=== PATIENT | female | born 1970 | race African-American/Black ===

== ENCOUNTER 2017-02-13 05:58 | Emergency (ER) | payer SELFPAY ==
[~2017-02-13] VITALS: Ht 154.9 cm; Wt 90.7 kg
[2017-02-13 06:26] VITALS: BP 166/106
[2017-02-13] MEDS ORDERED: PROCHLORPERAZINE 10 MG/2 ML VIAL. IV ONE (06:30)
--- NOTE | 2017-02-13 06:45 | ED.ADGEN ---
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 Patient denies fever and sweats, but reports feeling chilled. No nausea vomiting. No cough or shortness of breath. Street of asthma. Patient has not required inhaler use. Patient's been taking [id number] medications with limited relief. She states she has not been able to swallow her blood pressure pills secondary to pain. Blood pressure is notably elevated on today's evaluation. No other acute symptoms or complaints. Patient is a nonsmoker. Patient has received a flu shot this past flu season. Review of Systems Review of Systems Review symptoms as per history of present illness. All other review symptoms are negative. Current Medications Current Medications Current Medications Medications (Trade) Dose Ordered Sig/Ry Start Time Stop Time Status Last Admin Dose Admin Prochlorperazine Edisylate (Compazine) 10 mg 1X ONCE 02/13/17 06:30 02/13/17 06:31 DC Allergies Allergies Allergies Coded Allergies Type Severity Reaction Last Updated Verified metronidazole Allergy Intermediate rash 09/15/15 No Physical Exam Physical Exam Constitutional: Well developed, well nourished, no acute distress, non-toxic appearance. HENT: Normocephalic, atraumatic, bilateral external ears normal, oropharynx moist, posterior oropharynx, mild erythema, no exudates swelling or or tonsillar fullness. Uvula is midline. No trismus, hoarseness or drooling. Eyes: PERRL. Neck: Normal range of motion, no tenderness, supple, anterior cervical lymphadenopathy. Cardiovascular:Heart rate regular rhythm, no murmur. Lungs & Thorax: Bilateral breath sounds clear to auscultation. Abdomen: Bowel sounds normal, soft, no tenderness. Skin: Warm, dry. Back: No tenderness, no CVA tenderness. Extremities: No tenderness, no cyanosis, no clubbing, ROM intact, no edema. Neurologic: Alert and oriented X 3, normal motor function, normal sensory function, no focal deficits noted. Psychologic: Affect normal, judgement normal, mood normal. Current Patient Data Vital Signs Vital Signs Date Time Temp Pulse Resp B/P Pulse Ox O2 Delivery O2 Flow Rate FiO2 02/13/17 06:26 98.5 88 20 98 Room Air 98.5 EKG EKG [] Radiology/Procedures Radiology/Procedures [] Impressions: Acute upper respiratory tract infection Course & Med Decision Making Course & Med Decision Making Pertinent Labs and Imaging studies reviewed. (See chart for details) [] Dragon Disclaimer Dragon Disclaimer This electronic medical record was generated, in whole or in part, using a voice recognition dictation system. EARL PARTIDA DO February 13, 2017 06:45
== END 2017-02-13 06:50 | disposition home or self-care (01) ==
LOC: ER 05:58
DX: J06.9 Acute upper respiratory infection, unspecified (principal); I10 Essential (primary) hypertension; J45.909 Unspecified asthma, uncomplicated; Z90.710 Acquired absence of both cervix and uterus; Z90.49 Acquired absence of other specified parts of digestive tract; Z88.1 Allergy status to other antibiotic agents; Z98.890 Other specified postprocedural states
CPT/HCPCS: 99283

== ENCOUNTER 2017-03-15 19:53 | Emergency (ER) | payer BC ==
[~2017-03-15] VITALS: Ht 154.9 cm; Wt 103.4 kg
[2017-03-15 20:07] VITALS: BP 139/91
[2017-03-15] MEDS ORDERED: guaiFENesin/CODEINE 100mg/10mg 5 ML LIQUID PO ONE (20:30)
[2017-03-15] MEDS ORDERED: DEXAMETHASONE SOD PHOS 20 MG/5 ML VIAL. PO ONE (20:30)
--- NOTE | 2017-03-15 20:57 | PHYS DOC ---
Past Medical History Past Medical History: Asthma, Cancer, Hypertension Additional Past Medical Histor: Cervical Ca Past Surgical History: Cholecystectomy, Hysterectomy Additional Past Surgical Histo: Hernia, Esophagus Repair Alcohol Use: Occasionally Drug Use: None Adult General Chief Complaint Chief Complaint: SORE THROAT HPI HPI Patient is a pleasant 46-year-old female with a 4 week history of sore throat intermittently she was seen here in our emergency department 4 weeks ago and she with supportive care for otitis media and sore throat although no strep testing was done no antibiotics were provided. Patient then was seen at another ED. At given supportive medications and follow-up with her primary care doctor. Symptoms had improved until yesterday when symptoms came back. Patient still describes the pain as burning states when she swallows with no change in voice no cough, no fevers, no chills, she also complains of increased bowel breath in the mornings without burning sensation when she lays down. There is no transfer dysphagia no problems with regurgitation although she does have a history of reflux requiring esophageal banding. At that he has not been evaluated in years and she has no GI follow-up. Patient is concerned maybe she has a strep throat that has been untreated. At this point we will complete strep throat testing given supportive medications as an Robitussin-AC for her discomfort and Decadron by mouth to reduce the swelling and pain in her throat. Review of Systems Review of Systems Constitutional: Denies fever or chills [] Eyes: Denies change in visual acuity, redness, or eye pain [] HENT: He does, no sore throat without cough or nasal congestion. She denies ear pain at this time. She does complain of mild anterior swelling pain to the anterior neck. With no change in voice or dysphasia. Respiratory: Denies cough or shortness of breath [] Cardiovascular: No additional information not addressed in HPI [] GI: Denies abdominal pain, nausea, vomiting, bloody stools or diarrhea [] : Denies dysuria or hematuria [] Musculoskeletal: Denies back pain or joint pain [] Integument: Denies rash or skin lesions [] Neurologic: Denies headache, focal weakness or sensory changes [] Endocrine: Denies polyuria or polydipsia [] Current Medications Current Medications Current Medications Medications (Trade) Dose Ordered Sig/Ry Start Time Stop Time Status Last Admin Dose Admin Dexamethasone Sodium Phosphate (Decadron) 10 mg 1X ONCE 03/15/17 20:30 03/15/17 20:33 DC 03/15/17 20:42 10 MG Guaifenesin/ Codeine Phosphate (Robitussin Ac) 10 ml 1X ONCE 03/15/17 20:30 03/15/17 20:33 DC 03/15/17 20:42 10 ML Allergies Allergies Allergies Coded Allergies Type Severity Reaction Last Updated Verified metronidazole Allergy Intermediate rash 09/15/15 No Physical Exam Physical Exam Constitutional: Well developed, well nourished, no acute distress, non-toxic appearance. [] HENT: Normocephalic, atraumatic, bilateral external ears normal, oropharynx moist, patient is an ex-states but there is tonsillar hypertrophy or erythema. Patient has mild tenderness to palpation along the anterior portion of the trachea no obvious bulging of the trachea consistent with tracheitis, Kal angina or other disease patient infection within the neck. There is no evidence of rectal finger abscess peritonsillar abscess or buccal mucosal cellulitis. Eyes: PERRLA, EOMI, conjunctiva normal, no discharge. [] Neck: Normal range of motion, no tenderness, supple, no stridor. [] Cardiovascular:Heart rate regular rhythm, no murmur [] Lungs & Thorax: Bilateral breath sounds clear to auscultation [] Skin: Warm, dry, no erythema, no rash. [] Neurologic: Alert and oriented X 3, normal motor function, normal sensory function, no focal deficits noted. [] Psychologic: Affect normal, judgement normal, mood normal. [] Current Patient Data Vital Signs Vital Signs Date Time Temp Pulse Resp B/P (MAP) Pulse Ox O2 Delivery O2 Flow Rate FiO2 03/15/17 20:07 98.1 72 18 96 Room Air 98.1 Lab Values Rapid strep negative EKG EKG [] Radiology/Procedures Radiology/Procedures [] Course & Med Decision Making Course & Med Decision Making Pertinent Labs and Imaging studies reviewed. (See chart for details) ration with sore throat for 4 weeks with a history consistent with possible early reflux and esophageal spasm. Ration is negative rapid strep on exam there is no criteria for IV antibiotics or oral antibiotics at this time there is no evidence of peritonsillar abscess, retropharyngeal abscess, Kal angina, bacterial tracheitis, or sauce patient infection of the soft or hard palate. Patient seemed comfortable and stable will be provided some supportive care medications to include Robitussin-DONIS and follow-up with her primary care doctor referral back to GI for an EGD and possible barium swallow study to look for etiologies of her reflux or possible zenkers diverticula impression: Sore throat, pharyngitis Disposition: PCP FU and DONIS wilkerson Disclaimer Dragon Disclaimer This electronic medical record was generated, in whole or in part, using a voice recognition dictation system. Departure Departure Impression: Primary Impression: Sore throat Additional Impression: Pharyngitis Disposition: 01 HOME, SELF-CARE Condition: IMPROVED Referrals: LORNE CONTEH MD (PCP) Patient Instructions: Sore Throat, Viral and Bacterial Pharyngitis Additional Instructions: please return for any new or increasing symptoms, fever >103.1, change in voice or anterior neck swelling. Problem Qualifiers OSMIN SANDOVAL MD March 15, 2017 20:57
[2017-03-15] MEDS ORDERED: DEXT15CA37 PO (21:05)
[2017-03-16 08:59] LABS: NEGATIVE OBC STREP NEG; POSITIVE OBC STREP POS
== END 2017-03-15 21:16 | disposition home or self-care (01) ==
LOC: ER 19:53
DX: J02.9 Acute pharyngitis, unspecified (principal); J45.909 Unspecified asthma, uncomplicated; I10 Essential (primary) hypertension; K21.9 Gastro-esophageal reflux disease without esophagitis; Z90.49 Acquired absence of other specified parts of digestive tract; Z90.710 Acquired absence of both cervix and uterus; Z88.1 Allergy status to other antibiotic agents
CPT/HCPCS: 87070; 87880; 99283; J1100

== ENCOUNTER 2017-11-16 15:05 | Inpatient (IN) | payer OTHER, BC ==
[2017-11-16] MEDS: ASPIRIN CHEWABLE 81 MG TABLET. PO (16:30)
[2017-11-16] MEDS: NITROGLYCERIN OINT 1 GM PACKET. TP (16:57)
[2017-11-16] MEDS: ACETAMINOPHEN 325 MG TABLET. PO (17:13)
[2017-11-16 17:28] LABS: ADD MAN DIFF? NO
[2017-11-16 17:37] LABS: BASO # 0.1 x10^3/uL (0.0-0.2); BASO % 1 % (0-3); EOS # 0.1 x10^3/uL (0.0-0.7); EOS % 1 % (0-3); HEMATOCRIT 39.2 % (36.0-47.0); HEMOGLOBIN 13.1 g/dL (12.0-15.5); LYMPH # 3.1 x10^3/uL (1.0-4.8); LYMPH % 27 % (24-48); MEAN CORPUSCULAR HEMOGLOBIN 29 pg (25-35); MEAN CORPUSCULAR HGB CONC 33 g/dL (31-37); MEAN CORPUSCULAR VOLUME 86 fL (79-100); MONO # 0.8 x10^3/uL (0.0-1.1); MONO % 7 % (0-9); NEUT # 7.3 x10^3uL (1.8-7.7); NEUT % 64 % (31-73); PLATELET COUNT 243 x10^3/uL (140-400); RED BLOOD COUNT 4.57 x10^6/uL (3.50-5.40); RED CELL DISTRIBUTION WIDTH 15.2 % (11.5-14.5); WHITE BLOOD COUNT 11.5 x10^3/uL (4.0-11.0)
[2017-11-16 17:47] LABS: D-DIMER 0.29 ug/mlFEU (0.00-0.50)
[2017-11-16 17:53] LABS: ANION GAP 11 (6-14); BLOOD UREA NITROGEN 8 mg/dL (7-20); BUN/CREATININE RATIO 11 (6-20); CALCIUM 9.8 mg/dL (8.5-10.1); CARBON DIOXIDE 26 mmol/L (21-32); CHLORIDE 105 mmol/L (98-107); CREATININE 0.7 mg/dL (0.6-1.0); GLUCOSE 81 mg/dL (70-99); POTASSIUM 3.4 mmol/L (3.5-5.1); SODIUM 142 mmol/L (136-145)
[2017-11-16 17:57] LABS: ALBUMIN 3.9 g/dL (3.4-5.0); ALBUMIN/GLOBULIN RATIO 0.9 (1.0-1.7); ALK PHOS 99 U/L (46-116); ALT (SGPT) 14 U/L (14-59); AST (SGOT) 13 U/L (15-37); TOTAL BILIRUBIN 0.3 mg/dL (0.2-1.0); TOTAL PROTEIN 8.1 g/dL (6.4-8.2)
[2017-11-16 18:03] LABS: NT-PRO BNP 16 pg/mL (0-124)
[2017-11-16 18:04] LABS: TROPONINI < 0.017 ng/mL (0.000-0.055)
[2017-11-16] MEDS ORDERED: ACETAMINOPHEN 325 MG TABLET. PO (18:15)
[2017-11-16] MEDS ORDERED: NITROGLYCERIN SUBLINGUAL 0.4 MG BOTTLE OF 25. SL (18:15)
[2017-11-16] MEDS ORDERED: MORPHINE SULFATE 2 MG/ML DISP.SYRIN. IV (19:15)
[2017-11-16] MEDS ORDERED: DOCUSATE SODIUM 100 MG CAPSULE. PO (19:15)
[2017-11-16] MEDS ORDERED: hydrALAZINE 20 MG/ML VIAL. IVP (19:15)
[2017-11-16] MEDS ORDERED: ONDANSETRON PF 4 MG/2 ML VIAL. IV (19:15)
[2017-11-16] MEDS: traMADol 50 MG TABLET PO (19:57)
[2017-11-17] MEDS: traMADol 50 MG TABLET PO ×2 (03:10→11:08)
[2017-11-17 05:23] LABS: ADD MAN DIFF? NO
[2017-11-17 05:44] LABS: BASO % 0 % (0-3); EOS # 0.2 x10^3/uL (0.0-0.7); EOS % 2 % (0-3); HEMATOCRIT 37.6 % (36.0-47.0); HEMOGLOBIN 12.3 g/dL (12.0-15.5); LYMPH # 2.6 x10^3/uL (1.0-4.8); LYMPH % 30 % (24-48); MEAN CORPUSCULAR HEMOGLOBIN 28 pg (25-35); MEAN CORPUSCULAR HGB CONC 33 g/dL (31-37); MEAN CORPUSCULAR VOLUME 87 fL (79-100); MONO # 0.6 x10^3/uL (0.0-1.1); MONO % 7 % (0-9); NEUT # 5.3 x10^3uL (1.8-7.7); NEUT % 61 % (31-73); PLATELET COUNT 223 x10^3/uL (140-400); RED BLOOD COUNT 4.35 x10^6/uL (3.50-5.40); RED CELL DISTRIBUTION WIDTH 15.3 % (11.5-14.5); WHITE BLOOD COUNT 8.7 x10^3/uL (4.0-11.0)
[2017-11-17 06:17] LABS: ANION GAP 10 (6-14); BLOOD UREA NITROGEN 12 mg/dL (7-20); CALCIUM 9.3 mg/dL (8.5-10.1); CARBON DIOXIDE 26 mmol/L (21-32); CHLORIDE 106 mmol/L (98-107); CHOLESTEROL 136 mg/dL (0-200); CREATININE 0.7 mg/dL (0.6-1.0); GLUCOSE 93 mg/dL (70-99); HDLC 46 mg/dL (40-60); LDLC 78 mg/dL (0-100); NON-HDL CHOLESTEROL 90 mg/dL (0-129); POTASSIUM 3.7 mmol/L (3.5-5.1); SODIUM 142 mmol/L (136-145); TRIGLYCERIDES 61 mg/dL (0-150); VLDLC 12 mg/dL (0-40)
[2017-11-17 06:21] LABS: TROPONINI < 0.017 ng/mL (0.000-0.055)
[2017-11-17 06:35] LABS: THYROID STIM HORMONE (TSH) 1.076 uIU/mL (0.358-3.74)
[2017-11-17 08:42] LABS: TROPONINI < 0.017 ng/mL (0.000-0.055)
[2017-11-17] MEDS: PANTOPRAZOLE 40 MG TABLET.DR. PO (08:59)
[2017-11-17] MEDS: ACETAMINOPHEN 325 MG TABLET. PO (09:00)
[2017-11-17] MEDS: LISINOPRIL 20 MG TABLET PO (09:00)
[2017-11-17] MEDS: REGADENOSON 0.4 MG/5 ML DISP.SYRIN. IV (11:54)
== END 2017-11-17 18:18 | disposition home or self-care (01) | DRG 292 ==
LOC: ER 15:05 → 2 SOUTH 16:23
DX: I11.0 Hypertensive heart disease with heart failure (principal); Z68.41 Body mass index [BMI] 40.0-44.9, adult; E66.01 Morbid (severe) obesity due to excess calories; I20.0 Unstable angina; I50.9 Heart failure, unspecified; R07.89 Other chest pain; F41.9 Anxiety disorder, unspecified; J45.20 Mild intermittent asthma, uncomplicated; K21.9 Gastro-esophageal reflux disease without esophagitis; Z82.49 Family history of ischemic heart disease and other diseases of the circulatory system; Z85.41 Personal history of malignant neoplasm of cervix uteri; Z90.710 Acquired absence of both cervix and uterus; Z90.49 Acquired absence of other specified parts of digestive tract; Z85.9 Personal history of malignant neoplasm, unspecified; Z88.8 Allergy status to other drugs, medicaments and biological substances
CPT/HCPCS: 36415; 71045; 78452; 80048; 80053; 80061; 83880; 84443; 84484; 85025; 85379; 93005; 93017; 93306; 96374; 96375; 99285-25; A9500; J2785

== ENCOUNTER 2018-02-03 19:19 | Emergency (ER) | payer OTHER | END 2018-02-03 19:49 | disposition home or self-care (01) | LOC: ER 19:19 | DX: L25.9 Unspecified contact dermatitis, unspecified cause (principal); J45.909 Unspecified asthma, uncomplicated; I10 Essential (primary) hypertension; Z88.8 Allergy status to other drugs, medicaments and biological substances | CPT/HCPCS: 99283 ==

== ENCOUNTER 2018-10-29 08:53 | Inpatient (IN) | payer BC, OTHER ==
[~2018-10-29] VITALS: Ht 154.9 cm; Wt 111.2 kg
[~2018-10-29 08:53] MED LIST: DEXT15CA37 PO; LISI-130 PO; TRIA15OI TP
[2018-10-29] MEDS: NITROGLYCERIN SUBLINGUAL 0.4 MG BOTTLE OF 25. SL PRN ×3 (09:27→09:49)
[2018-10-29] MEDS ORDERED: ASPIRIN ENTERIC COATED 81 MG TABLET.DR. PO ONE (09:30)
[2018-10-29] MEDS ORDERED: ASPIRIN CHEWABLE 81 MG TABLET. PO ONE (09:30)
[2018-10-29 09:34] LABS: BASO # 0.1 x10^3/uL (0.0-0.2); BASO % 1 % (0-3); EOS # 0.1 x10^3/uL (0.0-0.7); EOS % 1 % (0-3); HEMOGLOBIN 12.8 g/dL (12.0-15.5); LYMPH # 2.5 x10^3/uL (1.0-4.8); LYMPH % 26 % (24-48); MEAN CORPUSCULAR HEMOGLOBIN 28 pg (25-35); MEAN CORPUSCULAR HGB CONC 34 g/dL (31-37); MEAN CORPUSCULAR VOLUME 84 fL (79-100); MONO # 0.5 x10^3/uL (0.0-1.1); MONO % 6 % (0-9); NEUT # 6.3 x10^3uL (1.8-7.7); NEUT % 66 % (31-73); PLATELET COUNT 229 x10^3/uL (140-400); RED CELL DISTRIBUTION WIDTH 14.9 % (11.5-14.5); WHITE BLOOD COUNT 9.5 x10^3/uL (4.0-11.0)
[2018-10-29 09:42] LABS: CALCIUM 9.6 mg/dL (8.5-10.1); CREATININE 0.7 mg/dL (0.6-1.0); GFR 108.5; POTASSIUM 3.6 mmol/L (3.5-5.1)
--- NOTE | 2018-10-29 09:44 | PHYS DOC ---
Past Medical History Past Medical History: Anxiety, Asthma, Cancer, Hypertension Additional Past Medical Histor: Cervical Ca Past Surgical History: Cholecystectomy, Hysterectomy Additional Past Surgical Histo: Hernia, Esophagus Repair Alcohol Use: Occasionally Drug Use: None Adult General Chief Complaint Chief Complaint: CHEST PAIN HPI HPI Patient is a 48 year old AA female with h/o asthma and hypertension since with substernal chest heaviness she is intermittent for the past 2 days. Pain is nonradiating. His episode with nausea vomiting chills or sweats. Denies dyspnea on exertion. Patient does report bilateral peripheral edema and leg pain. No history of DVT or PE. No history of CAD, diabetes. Patient is nonsmoker. No medications or therapy is attempted prior to ED arrival.[] Review of Systems Review of Systems Review symptoms as per history of present illness. All other review symptoms are negative. All other systems were reviewed and found to be within normal limits, except as documented in this note. Current Medications Current Medications Current Medications Medications (Trade) Dose Ordered Sig/Ry Start Time Stop Time Status Last Admin Dose Admin Aspirin (Children'S Aspirin) 324 mg 1X ONCE 10/29/18 09:30 10/29/18 09:31 DC 10/29/18 09:26 324 MG Aspirin (Ecotrin) 324 mg 1X ONCE 10/29/18 09:30 10/29/18 09:31 Cancel Morphine Sulfate (Morphine Sulfate) 4 mg 1X ONCE 10/29/18 10:15 10/29/18 10:16 DC 10/29/18 10:04 4 MG Nitroglycerin (Nitrostat) 0.4 mg PRN Q5MIN PRN 10/29/18 09:15 10/29/18 09:49 0.4 MG Ondansetron HCl (Zofran) 4 mg 1X ONCE 10/29/18 10:15 10/29/18 10:16 DC 10/29/18 10:03 4 MG Allergies Allergies Allergies Coded Allergies Type Severity Reaction Last Updated Verified metronidazole Allergy Intermediate rash 09/15/15 No Physical Exam Physical Exam Constitutional: Well developed, well nourished, no acute distress, non-toxic appearance. [] HENT: Normocephalic, atraumatic, bilateral external ears normal, nose normal. [ ] Eyes: PERRLA, EOMI, conjunctiva normal. [] Neck: Normal range of motion, no tenderness. [] Cardiovascular:Heart rate regular rhythm, no murmur, negative homans sign [] Lungs & Thorax: Bilateral breath sounds clear to auscultation [] Abdomen: Bowel sounds normal, soft, no tenderness. [] Skin: Warm, dry, no erythema. [] Back: No tenderness, no CVA tenderness. [] Extremities: No tenderness, bipedal edema. [] Neurologic: Alert and oriented X 3, normal motor function, normal sensory function, no focal deficits noted. [] Psychologic: Affect normal, judgement normal, mood normal. [] Current Patient Data Vital Signs Vital Signs Date Time Temp Pulse Resp B/P (MAP) Pulse Ox O2 Delivery O2 Flow Rate FiO2 10/29/18 10:04 20 95 Room Air 10/29/18 09:49 78 115/57 10/29/18 08:53 98.0 98.0 Lab Values Laboratory Tests Test 10/29/18 09:20 White Blood Count 9.5 x10^3/uL (4.0-11.0) Red Blood Count 4.50 x10^6/uL (3.50-5.40) Hemoglobin 12.8 g/dL (12.0-15.5) Hematocrit 38.0 % (36.0-47.0) Mean Corpuscular Volume 84 fL (79-100) Mean Corpuscular Hemoglobin 28 pg (25-35) Mean Corpuscular Hemoglobin Concent 34 g/dL (31-37) Red Cell Distribution Width 14.9 % (11.5-14.5) H Platelet Count 229 x10^3/uL (140-400) Neutrophils (%) (Auto) 66 % (31-73) Lymphocytes (%) (Auto) 26 % (24-48) Monocytes (%) (Auto) 6 % (0-9) Eosinophils (%) (Auto) 1 % (0-3) Basophils (%) (Auto) 1 % (0-3) Neutrophils # (Auto) 6.3 x10^3uL (1.8-7.7) Lymphocytes # (Auto) 2.5 x10^3/uL (1.0-4.8) Monocytes # (Auto) 0.5 x10^3/uL (0.0-1.1) Eosinophils # (Auto) 0.1 x10^3/uL (0.0-0.7) Basophils # (Auto) 0.1 x10^3/uL (0.0-0.2) D-Dimer (Carito) 0.31 ug/mlFEU (0.00-0.50) Sodium Level 141 mmol/L (136-145) Potassium Level 3.6 mmol/L (3.5-5.1) Chloride Level 103 mmol/L (98-107) Carbon Dioxide Level 32 mmol/L (21-32) Anion Gap 6 (6-14) Blood Urea Nitrogen 8 mg/dL (7-20) Creatinine 0.7 mg/dL (0.6-1.0) Estimated GFR (Cockcroft-Gault) 108.5 BUN/Creatinine Ratio 11 (6-20) Glucose Level 101 mg/dL (70-99) H Calcium Level 9.6 mg/dL (8.5-10.1) Total Bilirubin 0.3 mg/dL (0.2-1.0) Aspartate Amino Transferase (AST) 15 U/L (15-37) Alanine Aminotransferase (ALT) 17 U/L (14-59) Alkaline Phosphatase 98 U/L (46-116) Troponin I Quantitative < 0.017 ng/mL (0.000-0.055) OC-Yag-R-Type Natriuretic Peptide 9 pg/mL (0-124) Total Protein 8.0 g/dL (6.4-8.2) Albumin 3.7 g/dL (3.4-5.0) Albumin/Globulin Ratio 0.9 (1.0-1.7) L Laboratory Tests 10/29/18 09:20 Laboratory Tests 10/29/18 09:20 EKG EKG [EKG: reviewed] Radiology/Procedures Radiology/Procedures [Chest x-ray: No acute cardiopulmonary disease on preliminary ED review] Course & Med Decision Making Course & Med Decision Making Pertinent Labs and Imaging studies reviewed. (See chart for details) [] Dragon Disclaimer Dragon Disclaimer This electronic medical record was generated, in whole or in part, using a voice recognition dictation system. Departure Departure Referrals: NO PCP (PCP) EARL PARTIDA DO Oct 29, 2018 09:44
[2018-10-29 09:48] LABS: ALBUMIN 3.7 g/dL (3.4-5.0); ALBUMIN/GLOBULIN RATIO 0.9 (1.0-1.7); TOTAL BILIRUBIN 0.3 mg/dL (0.2-1.0)
[2018-10-29] MEDS ORDERED: MORPHINE SULFATE 4 MG/ML VIAL. IV ONE (10:15)
[2018-10-29] MEDS ORDERED: ONDANSETRON PF 4 MG/2 ML VIAL. IV ONE (10:15)
--- NOTE | 2018-10-29 10:31 | RAD ---
EXAM: AP View of the chest DATE: 10/29/2018 9:21 AM INDICATION: Shortness of air COMPARISON: 11/16/2017 FINDINGS: The heart is not enlarged. Mediastinal and hilar contours are stable. No focal parenchymal airspace opacity. Nodular density left lower lobe, calcified granuloma No pleural effusion or pneumothorax. IMPRESSION: 1. No radiographic evidence for acute cardiopulmonary process. Electronically signed by: Duglas Carreon MD (10/29/2018 10:27 AM) [id number]
[2018-10-29] MEDS ORDERED: ONDANSETRON PF 4 MG/2 ML VIAL. IV PRN (11:00)
--- NOTE | 2018-10-29 11:11 | EKG ---
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
--- NOTE | 2018-10-29 12:25 | HP ---
ADMIT DATE: 10/29/2018 CHIEF COMPLAINT: Chest discomfort. 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 She developed chest discomfort, rates it a 7 out of 10, describes it as pressure like. It has been occurring off and on for a couple of days. She tried taking some home meds, but that was not working. Describes it as agonizing, worse with moving. I have discussed the case with the ER physician. We are going to admit the patient and rule out coronary syndrome. PAST MEDICAL HISTORY: Anxiety, asthma, cervical cancer, hypertension, cholecystectomy, hysterectomy, hernia repair and esophageal repair. ALLERGIES: METRONIDAZOLE. FAMILY HISTORY: Coronary artery disease in her brother, her sister and her mom. SOCIAL HISTORY: She does not drink, smoke or take drugs. MEDICATIONS: Reviewed. She is on lisinopril and triamcinolone. REVIEW OF SYSTEMS: GENERAL: No history of weight change, weakness or fevers. SKIN: No bruising, hair changes or rashes. EYES: No blurred, double or loss of vision. NOSE AND THROAT: No history of nosebleeds, hoarseness or sore throat. HEART: No history of palpitations or shortness of breath on exertion. She complains of chest pain. LUNGS: Denies cough, hemoptysis, wheezing or shortness of breath. GASTROINTESTINAL: Denies changes in appetite, nausea, vomiting, diarrhea or constipation. GENITOURINARY: No history of frequency, urgency, hesitancy or nocturia. NEUROLOGIC: Denies history of numbness, tingling, tremor or weakness. PSYCHIATRIC: No history of panic, anxiety or depression. ENDOCRINE: No history of heat or cold intolerance, polyuria or polydipsia. EXTREMITIES: Denies muscle weakness, joint pain, pain on walking or stiffness. PHYSICAL EXAMINATION: VITAL SIGNS: Temperature afebrile, pulse 98, respirations 18 and blood pressure 146/90. GENERAL: She is alert, cooperative. HEART: Normal S1, S2. LUNGS: Clear to auscultation. ABDOMEN: Soft. Positive bowel sounds. EXTREMITIES: Trace edema. SKIN: No rash. ENDOCRINE: No thyromegaly. LYMPHATICS: No cervical nodes. HEMATOPOIETIC: No bruising. PSYCHIATRIC: She is stable. LABORATORY DATA: Hematology is normal. Electrolytes are normal. Troponin is 0. ASSESSMENT AND PLAN: Chest pain, rule out coronary artery disease. The patient has been admitted. We will check serial enzymes, serial EKGs, consult Cardiology, cardiac monitoring. PROGNOSIS: Guarded. YESSY GALINDO DO DR: Arnoldo JOB#: [id number] / [id number]
--- NOTE | 2018-10-29 13:03 | PDOC2 ---
GUILLE CONTRERAS NURSERY WORKER 10/29/18 1303: CARDIAC CONSULT DATE OF CONSULT Date of Consult DATE: 10/29/18 TIME: 13:01 REASON FOR CONSULT Reason for Consult: Chest pain REFERRING PHYSICIAN Referring Physician: Dr. Tijerina SOURCE Source: Chart review, Patient HISTORY OF PRESENT ILLNESS HISTORY OF PRESENT ILLNESS This is a 48 yo female who presented with complaints of chest pain. Patient reports pain began while she was at work yesterday. Has been constant. Describes as pressure. Located in her central chest/epigastric region. Denies any associated dizziness, SOA, diaphoresis, palpitation, or nausea/vomiting. Pain seems to be improved with sitting up. Also reports tightness in her left FA. Stats that she is able to "work the pain out" by rubbing it. No recent ANDREWS, PND, or fevers/illness. Does complaints of throbbing in her bilateral LE x3 days. Feeling like her left knee is slightly swollen and has had some mild pain behind the right knee for the last couple of days. PAST MEDICAL HISTORY Cardiovascular: HTN Pulmonary: Asthma, Other (TSERING) CENTRAL NERVOUS SYSTEM: Other (no pertinent history ) GI: GERD, Other (esophageal stricture s/p dilation) Heme/Onc: Cancer (cervical ) Hepatobiliary: No pertinent hx Psych: Anxiety Musculoskeletal: Other (no pertinet hx) Rheumatologic: No pertinent hx Infectious disease: No pertinent hx ENT: No pertinent hx Renal/: No pertinent hx Endocrine: No pertinent hx Dermatology: No pertinent hx PAST SURGICAL HISTORY Past Surgical History: Cholecystectomy, Hernia Repair, Hysterectomy FAMILY HISTORY Family History: Coronary Artery Disease, Heart Disease SOCIAL HISTORY Smoke: No ALCOHOL: none Drugs: None Lives: Alone CURRENT MEDICATIONS CURRENT MEDICATIONS Current Medications Medications (Trade) Dose Ordered Sig/Ry Route PRN Reason Start Time Stop Time Status Last Admin Dose Admin Nitroglycerin (Nitrostat) 0.4 mg PRN Q5MIN PRN SL CHEST PAIN 10/29/18 09:15 10/29/18 09:49 Aspirin (Children'S Aspirin) 324 mg 1X ONCE PO 10/29/18 09:30 10/29/18 09:31 DC 10/29/18 09:26 Morphine Sulfate (Morphine Sulfate) 4 mg 1X ONCE IV 10/29/18 10:15 10/29/18 10:16 DC 10/29/18 10:04 Ondansetron HCl (Zofran) 4 mg 1X ONCE IV 10/29/18 10:15 10/29/18 10:16 DC 10/29/18 10:03 ALLERGIES ALLERGIES: Coded Allergies: metronidazole (Verified Allergy, Intermediate, rash, 10/30/18) ROS Review of System 14 point ROS conducted with pertinent positives noted above in HPI. PHYSICAL EXAM General: Alert, Oriented X3, Cooperative, No acute distress HEENT: Atraumatic, Mucous membr. moist/pink Lungs: Clear to auscultation, Normal air movement Heart: Regular rate, No murmurs Abdomen: Soft, No tenderness Extremities: No edema, Normal pulses Skin: No breakdown, No significant lesion Neuro: Normal speech, Sensation intact Psych/Mental Status: Mental status NL, Mood NL MUSCULOSKELETAL: No deformity VITALS VITALS Vital Signs Date Time Temp Pulse Resp B/P (MAP) Pulse Ox O2 Delivery O2 Flow Rate FiO2 10/29/18 11:31 76 14 109/62 (78) 95 Room Air 10/29/18 08:53 98.0 98.0 LABS Lab: Laboratory Tests Test 10/29/18 09:20 White Blood Count 9.5 x10^3/uL (4.0-11.0) Red Blood Count 4.50 x10^6/uL (3.50-5.40) Hemoglobin 12.8 g/dL (12.0-15.5) Hematocrit 38.0 % (36.0-47.0) Mean Corpuscular Volume 84 fL (79-100) Mean Corpuscular Hemoglobin 28 pg (25-35) Mean Corpuscular Hemoglobin Concent 34 g/dL (31-37) Red Cell Distribution Width 14.9 % (11.5-14.5) Platelet Count 229 x10^3/uL (140-400) Neutrophils (%) (Auto) 66 % (31-73) Lymphocytes (%) (Auto) 26 % (24-48) Monocytes (%) (Auto) 6 % (0-9) Eosinophils (%) (Auto) 1 % (0-3) Basophils (%) (Auto) 1 % (0-3) Neutrophils # (Auto) 6.3 x10^3uL (1.8-7.7) Lymphocytes # (Auto) 2.5 x10^3/uL (1.0-4.8) Monocytes # (Auto) 0.5 x10^3/uL (0.0-1.1) Eosinophils # (Auto) 0.1 x10^3/uL (0.0-0.7) Basophils # (Auto) 0.1 x10^3/uL (0.0-0.2) D-Dimer (Carito) 0.31 ug/mlFEU (0.00-0.50) Sodium Level 141 mmol/L (136-145) Potassium Level 3.6 mmol/L (3.5-5.1) Chloride Level 103 mmol/L (98-107) Carbon Dioxide Level 32 mmol/L (21-32) Anion Gap 6 (6-14) Blood Urea Nitrogen 8 mg/dL (7-20) Creatinine 0.7 mg/dL (0.6-1.0) Estimated GFR (Cockcroft-Gault) 108.5 BUN/Creatinine Ratio 11 (6-20) Glucose Level 101 mg/dL (70-99) Calcium Level 9.6 mg/dL (8.5-10.1) Total Bilirubin 0.3 mg/dL (0.2-1.0) Aspartate Amino Transf (AST/SGOT) 15 U/L (15-37) Alanine Aminotransferase (ALT/SGPT) 17 U/L (14-59) Alkaline Phosphatase 98 U/L (46-116) Troponin I Quantitative < 0.017 ng/mL (0.000-0.055) TS-Qwe-H-Type Natriuretic Peptide 9 pg/mL (0-124) Total Protein 8.0 g/dL (6.4-8.2) Albumin 3.7 g/dL (3.4-5.0) Albumin/Globulin Ratio 0.9 (1.0-1.7) ECHOCARDIOGRAM ECHOCARDIOGRAM <Conclusion> The left ventricular systolic function is normal. The Ejection Fraction is 60-65%. There is normal LV segmental wall motion. Doppler and Color Flow revealed trace tricuspid regurgitation. There is no evidence of significant pericardial effusion. DATE: 11/17/17 1629 STRESS TEST STRESS TEST Conclusion 1. No EKG evidence of stressed induced ischemia. 2. Nuclear imaging shows normal stress images. 3. Normal left ventricular systolic function with an ejection fraction of greater than 70%. 4. Low risk Lexiscan nuclear stress test. DATE: 11/17/17 1352 ASSESSMENT/PLAN ASSESSMENT/PLAN 1. Chest pain. initial troponin negative. MPI earlier this year without ischemia. Echo with preserved LV function as noted above. Suspect pain is GI in origin 2. Hypertension; controlled 3. Morbid obesity: BMI 44 4. GERD; no on PPI 5. Hx of hiatal hernia and esophageal stricture with repair and dilatation 2 years ago Recommendations Trend troponin Check echo to assess LV systolic function Resume antiHTN therapy Add PPI LILIANA GALLARDO MD 10/30/18 0754: CARDIAC CONSULT ASSESSMENT/PLAN ASSESSMENT/PLAN Patient seen and examined 10/29/18. Agree with COLOR CORRECTOR's assessment and plan. Chest pain with atypical features and most probably GI etiology. Myocardial infarction has been ruled out. 2-D echo showed normal LV systolic function without any wall motion abnormalities. Recent stress test did not show any significant ischemia. No further cardiac workup is indicated at this time. Thank you for your consultation. GUILLE CONTRERAS APRN Oct 29, 2018 13:03 LILIANA GALLARDO MD Oct 30, 2018 07:54
[2018-10-29 13:25] VITALS: BP 144/87
--- NOTE | 2018-10-29 15:52 | RAD ---
Bilateral lower extremity venous ultrasound, 10/29/2018: History: Bilateral leg pain Duplex evaluation of the deep veins in the lower extremities was performed including grayscale, color-flow and spectral Doppler analysis. The femoral and popliteal veins demonstrate normal compressibility and normal responses to distal augmentation maneuvers. Color imaging of those vessels shows no evidence of intraluminal clot. The visualized deep veins in both calves are patent. IMPRESSION: There is no sonographic evidence of deep vein thrombosis in either lower extremity. Electronically signed by: Surendra Moseley MD (10/29/2018 3:47 PM) [facility]
[2018-10-29 15:53] VITALS: BP 141/89
--- NOTE | 2018-10-29 16:54 | CARD ---
MR#: [id number] Date of Study: 10/29/2018 Ordering Physician: GUILLE CONTRERAS, Referring Physician: YESSY GALINDO Tech: Asia Barron BABATUNDE APPROVED REPORT EXAM: Two-dimensional and M-mode echocardiogram with Doppler and color Doppler. Other Information Quality : FairHR: 65bpm Rhythm : NSRTechnically limited study due to body habitus. INDICATION Chest Pain 2D DIMENSIONS RVDd2.6 (2.9-3.5cm)Left Atrium(2D)2.3 (1.6-4.0cm) IVSd1.2 (0.7-1.1cm)Aortic Root(2D)3.3 (2.0-3.7cm) LVDd4.0 (3.9-5.9cm)LVOT Diameter2.4 (1.8-2.4cm) PWd1.1 (0.7-1.1cm)LVDs2.9 (2.5-4.0cm) FS (%) 28.2 %SV38.4 ml LVEF(%)55.1 (>50%) M-Mode DIMENSIONS Left Atrium(MM)2.73 (2.5-4.0cm)Aortic Root3.12 (2.2-3.7cm) Aortic Valve AoV Peak Benny.130.4cm/sAoV VTI28.0cm AO Peak GR.6.8mmHgLVOT Peak Benny.94.6cm/s AO Mean GR.3mmHgAVA (VMAX)3.36cm2 RIKY (VTI)3.30cm2 Mitral Valve MV E Yroxnfdv33.6cm/sMV DECEL [id number] MV A Tvtkunnu57.1cm/sE/A Ratio1.1 MV A [id number] Pulmonary Valve PV Peak Lxgmrnno50.6cm/s Tricuspid Valve TR P. Ypkemsyi259nn/sRAP NHASHLVO9ktZi TR Peak Gr.15joWvAQLL15jxMf LEFT VENTRICLE The left ventricle is normal size. There is borderline to mild concentric left ventricular hypertroph y. The left ventricular systolic function is normal. The Ejection Fraction is 55-60%. There is normal LV segmental wall motion. RIGHT VENTRICLE The right ventricle is normal size. There is normal right ventricular wall thickness. The right ventr icular systolic function is normal. AORTIC VALVE The aortic valve is probably trileaflet. Doppler and Color Flow revealed no significant aortic regurg itation. There is no significant aortic valvular stenosis. MITRAL VALVE The mitral valve is normal in structure and function. There is no evidence of mitral valve prolapse. There is no mitral valve stenosis. Doppler and Color Flow revealed no mitral valve regurgitation note d. TRICUSPID VALVE The tricuspid valve is normal in structure and function. Doppler and Color Flow revealed trace tricus pid regurgitation. There is mild pulmonary hypertension. The PA pressure was estimated at 45 mmHg. Th ere is no tricuspid valve prolapse or vegetation. There is no tricuspid valve stenosis. PULMONIC VALVE Pulmonic valve not well visualized. Doppler and Color Flow revealed trace to mild pulmonic valvular r egurgitation. GREAT VESSELS The aortic root is normal in size. The ascending aorta is normal in size. PERICARDIAL EFFUSION There is no evidence of significant pericardial effusion. Critical Notification Critical Value: No <Conclusion> The left ventricular systolic function is normal. The Ejection Fraction is 55-60%. There is normal LV segmental wall motion. Doppler and Color Flow revealed trace tricuspid regurgitation. The PA pressure was estimated at 45 mmHg. There is no evidence of significant pericardial effusion. Signed by : Baron Dudley, Electronically Approved : 10/29/2018 16:52:13
[2018-10-29] MEDS ORDERED: ACETAMINOPHEN 325 MG TABLET. PO PRN (17:15)
[2018-10-29] MEDS: PANTOPRAZOLE 40 MG TABLET.DR. PO SCH (18:09)
[2018-10-29 19:28] VITALS: BP 140/73
--- NOTE | 2018-10-29 20:56 | NUR ---
Patient complaints bilateral leg pain. Rates pain 6 out of 10. Patient stated "not new been hurting all day." "Constant is not relieved by anything."Paged application support technician [phone]. Dr Valerio application support technician.
[2018-10-29] MEDS: oxyCODONE IR 5 MG TABLET PO PRN (21:45)
--- NOTE | 2018-10-29 21:45 | NUR ---
During downtime 5 mg PO Oxycontin was given. Medication and patient was not scanned due to downtime.
[2018-10-30 03:02] VITALS: BP 116/65
[2018-10-30] MEDS: PANTOPRAZOLE 40 MG TABLET.DR. PO SCH (05:59)
[2018-10-30 07:00] VITALS: BP 106/62
[2018-10-30] MEDS: ASPIRIN ENTERIC COATED 81 MG TABLET.DR. PO SCH (08:45)
[2018-10-30] MEDS: LISINOPRIL 20 MG TABLET PO SCH (08:45)
[2018-10-30] MEDS: oxyCODONE IR 5 MG TABLET PO PRN ×2 (08:46→20:47)
[2018-10-30 11:00] VITALS: BP 146/89
[2018-10-30] MEDS ORDERED: INFLUENZA VAX SCREEN BY RX. MC PRN (12:00)
--- NOTE | 2018-10-30 14:34 | NUR ---
SS following for discharge planning. SS reviewed pt chart. Pt is from home and is currently on room air. No discharge needs noted at this time. SS will continue to follow for pending discharge needs
[2018-10-30] MEDS: GABAPENTIN 100 MG CAPSULE. PO SCH ×2 (14:45→20:45)
[2018-10-30 15:00] VITALS: BP 152/82
[2018-10-30] MEDS ORDERED: GABA-585 PO (15:56)
--- NOTE | 2018-10-30 17:02 | RAD ---
Bilateral lower extremity arterial ultrasound, 10/30/2018: HISTORY: Bilateral leg pain Duplex evaluation of the major arteries in both lower extremities was performed including grayscale, color-flow and spectral Doppler analysis. The right common femoral artery, superficial femoral and popliteal arteries demonstrate triphasic Doppler waveforms. No significant focal velocity acceleration is seen through those regions to suggest significant stenosis. No prominent plaque formation is seen. Patent posterior tibial and anterior tibial arteries are present in the right lower leg demonstrating monophasic Doppler waveforms. The right peroneal artery was not visualized. The right dorsal palace pedis artery also demonstrates a monophasic Doppler waveform. On the left, the common femoral, superficial femoral and popliteal arteries demonstrate probably triphasic Doppler waveforms. No significant focal velocity acceleration is seen to suggest high-grade stenosis. No prominent plaque formation is evident. A patent posterior tibial artery is present in the left lower leg demonstrating a monophasic Doppler waveform. The left anterior tibial Doppler waveform is triphasic. The left peroneal artery could not be visualized. The left dorsalis pedis Doppler waveform is monophasic. IMPRESSION: 1. Mild degradation of the distal Doppler waveforms in both lower legs. 2. No high-grade femoral-popliteal stenosis is identified. Electronically signed by: Surendra Moseley MD (10/30/2018 4:57 PM) [facility] [place]
--- NOTE | 2018-10-30 17:39 | PDOC ---
PROGRESS NOTES Chief Complaint Chief Complaint chest pain could be gerd bl leg pain, neuropathy vs PAD h/o asthma , anxiety, cervical Ca HTN accelerated morbid obesity plan: card consulted, echo ok, signed off cont home meds dvt ruled out US showed some leg PAD, will get cta and vascular consult add gabapentin check vitb12 dvt ppx History of Present Illness History of Present Illness no chest pain now, came for chest pain for 2 ds c/o bl leg pain, rt great toe pain like needle Vitals Vitals Vital Signs Date Time Temp Pulse Resp B/P (MAP) Pulse Ox O2 Delivery O2 Flow Rate FiO2 10/30/18 15:00 97.8 80 18 152/82 (105) 96 Room Air 97.8 Physical Exam General: Alert, Oriented X3, Cooperative, No acute distress Heart: Regular rate, Normal S1, Normal S2, No murmurs Lungs: Clear Abdomen: Soft, No tenderness Extremities: No edema, Normal pulses Skin: No breakdown, No significant lesion Comment Review of Relevant I have reviewed the following items viviana (where applicable) has been applied. Labs Laboratory Tests Test 10/29/18 09:20 10/29/18 14:23 White Blood Count 9.5 x10^3/uL (4.0-11.0) Red Blood Count 4.50 x10^6/uL (3.50-5.40) Hemoglobin 12.8 g/dL (12.0-15.5) Hematocrit 38.0 % (36.0-47.0) Mean Corpuscular Volume 84 fL (79-100) Mean Corpuscular Hemoglobin 28 pg (25-35) Mean Corpuscular Hemoglobin Concent 34 g/dL (31-37) Red Cell Distribution Width 14.9 % (11.5-14.5) Platelet Count 229 x10^3/uL (140-400) Neutrophils (%) (Auto) 66 % (31-73) Lymphocytes (%) (Auto) 26 % (24-48) Monocytes (%) (Auto) 6 % (0-9) Eosinophils (%) (Auto) 1 % (0-3) Basophils (%) (Auto) 1 % (0-3) Neutrophils # (Auto) 6.3 x10^3uL (1.8-7.7) Lymphocytes # (Auto) 2.5 x10^3/uL (1.0-4.8) Monocytes # (Auto) 0.5 x10^3/uL (0.0-1.1) Eosinophils # (Auto) 0.1 x10^3/uL (0.0-0.7) Basophils # (Auto) 0.1 x10^3/uL (0.0-0.2) D-Dimer (Carito) 0.31 ug/mlFEU (0.00-0.50) Sodium Level 141 mmol/L (136-145) Potassium Level 3.6 mmol/L (3.5-5.1) Chloride Level 103 mmol/L (98-107) Carbon Dioxide Level 32 mmol/L (21-32) Anion Gap 6 (6-14) Blood Urea Nitrogen 8 mg/dL (7-20) Creatinine 0.7 mg/dL (0.6-1.0) Estimated GFR (Cockcroft-Gault) 108.5 BUN/Creatinine Ratio 11 (6-20) Glucose Level 101 mg/dL (70-99) Calcium Level 9.6 mg/dL (8.5-10.1) Total Bilirubin 0.3 mg/dL (0.2-1.0) Aspartate Amino Transf (AST/SGOT) 15 U/L (15-37) Alanine Aminotransferase (ALT/SGPT) 17 U/L (14-59) Alkaline Phosphatase 98 U/L (46-116) Troponin I Quantitative < 0.017 ng/mL (0.000-0.055) < 0.017 ng/mL (0.000-0.055) VL-Cqc-F-Type Natriuretic Peptide 9 pg/mL (0-124) Total Protein 8.0 g/dL (6.4-8.2) Albumin 3.7 g/dL (3.4-5.0) Albumin/Globulin Ratio 0.9 (1.0-1.7) Medications Current Medications Aspirin (Ecotrin) 324 mg 1X ONCE PO ; Start 10/29/18 at 09:30; Stop 10/29/18 at 09:31; Status Cancel Nitroglycerin (Nitrostat) 0.4 mg PRN Q5MIN PRN SL CHEST PAIN Last administered on 10/29/18at 09:49; Start 10/29/18 at 09:15 Aspirin (Children'S Aspirin) 324 mg 1X ONCE PO Last administered on 10/29/18 09:26; Start 10/29/18 at 09:30; Stop 10/29/18 at 09:31; Status DC Morphine Sulfate (Morphine Sulfate) 4 mg 1X ONCE IV Last administered on at 10:04; Start 10/29/18 at 10:15; Stop 10/29/18 at 10:16; Status DC Ondansetron HCl (Zofran) 4 mg 1X ONCE IV Last administered on 10/29/18at 10:03 ; Start 10/29/18 at 10:15; Stop 10/29/18 at 10:16; Status DC Ondansetron HCl (Zofran) 4 mg PRN Q8HRS PRN IV NAUSEA/VOMITING; Start 10/29/18 at 11:00; Stop 10/30/18 at 10:59; Status DC Acetaminophen (Tylenol) 650 mg PRN Q6HRS PRN PO MILD PAIN Last administered on 10/29/18 17:22; Start 10/29/18 at 17:15 Aspirin (Ecotrin) 81 mg DAILYWBKFT PO Last administered on 10/30/18at 08:45; Start 10/30/18 at 08:00 Pantoprazole Sodium (Protonix) 40 mg DAILYAC PO Last administered on 10/29/18 18:09; Start 10/29/18 at 18:00 Lisinopril (Prinivil) 40 mg DAILY PO Last administered on 10/30/18at 08:45; Start 10/30/18 at 09:00 Oxycodone HCl (Roxicodone) 5 mg PRN Q6HRS PRN PO SEVERE PAIN Last administered on 10/30/18at 08:46; Start 10/29/18 at 21:30 Info (FLU VACCINE SCREEN per RX) 1 each PRN 1X PRN MC SEE COMMENTS; Start 10/30 at 12:00; Status UNV Influenza Virus Vaccine (Afluria Trivalent [id number] Syringe) 0.5 ml ONCE ONCE VAX IM Last administered on 10/30/18at 14:50; Start 10/30/18 at 13:00; Stop at 13:01; Status DC Gabapentin (Neurontin) 100 mg TID PO Last administered on 10/30/18at 14:45; Start 10/30/18 at 14:00 Active Scripts Active Gabapentin (Gabapentin) 100 Mg Capsule 100 Mg PO TID 30 Days Triamcinolone Acetonide 0.1% Oint (Triamcinolone Acetonide) 15 Gm Oint...g. 1 Beatriz TP BID MIX WITH EUCERIN DIRECTED BY PHYSICIAN Reported Lisinopril 40 Mg Tablet 1 Tab PO DAILY Vitals/I & O Vital Sign - Last 24 Hours 10/29/18 10/29/18 10/30/18 10/30/18 19:28 20:00 03:02 07:00 Temp 97.9 98.0 97.7 97.9 98.0 97.7 Pulse 82 85 66 Resp 23 21 20 B/P (MAP) 140/73 (95) 116/65 (82) 106/62 (77) Pulse Ox 98 96 96 O2 Delivery Room Air Room Air Room Air Room Air 10/30/18 10/30/18 10/30/18 10/30/18 08:00 08:45 08:46 09:46 Pulse 82 B/P (MAP) 145/83 O2 Delivery Room Air Room Air Room Air 10/30/18 10/30/18 11:00 15:00 Temp 97.4 97.8 97.4 97.8 Pulse 73 80 Resp 20 18 B/P (MAP) 146/89 (108) 152/82 (105) Pulse Ox 98 96 O2 Delivery Room Air Room Air Intake and Output 10/29/18 10/29/18 10/30/18 15:01 23:01 07:01 Intake Total 120 ml 400 ml Output Total 800 ml Balance 120 ml -400 ml ASHWIN BRISENO MD Oct 30, 2018 17:39
--- NOTE | 2018-10-30 18:37 | NUR ---
Called vascular consult.
[2018-10-30 19:41] VITALS: BP 113/71
[2018-10-30] MEDS: HEPARIN for SUB-Q USE 5,000 UNIT/ML VIAL. SQ SCH (21:37)
[2018-10-30 22:44] VITALS: BP 128/63
[2018-10-31 03:46] VITALS: BP 116/76
[2018-10-31 04:41] LABS: BASO % 0 % (0-3); EOS # 0.1 x10^3/uL (0.0-0.7); EOS % 2 % (0-3); HEMATOCRIT 37.8 % (36.0-47.0); HEMOGLOBIN 12.4 g/dL (12.0-15.5); LYMPH # 2.2 x10^3/uL (1.0-4.8); LYMPH % 30 % (24-48); MEAN CORPUSCULAR HEMOGLOBIN 28 pg (25-35); MEAN CORPUSCULAR HGB CONC 33 g/dL (31-37); MEAN CORPUSCULAR VOLUME 86 fL (79-100); MONO # 0.6 x10^3/uL (0.0-1.1); MONO % 8 % (0-9); NEUT # 4.6 x10^3uL (1.8-7.7); NEUT % 61 % (31-73); PLATELET COUNT 227 x10^3/uL (140-400); RED BLOOD COUNT 4.41 x10^6/uL (3.50-5.40); RED CELL DISTRIBUTION WIDTH 15.1 % (11.5-14.5); WHITE BLOOD COUNT 7.6 x10^3/uL (4.0-11.0)
[2018-10-31 05:54] LABS: CALCIUM 9.3 mg/dL (8.5-10.1); CREATININE 0.8 mg/dL (0.6-1.0)
[2018-10-31] MEDS: PANTOPRAZOLE 40 MG TABLET.DR. PO SCH ×2 (06:13→06:17)
[2018-10-31] MEDS: HEPARIN for SUB-Q USE 5,000 UNIT/ML VIAL. SQ SCH ×2 (06:15→14:00)
[2018-10-31 07:00] VITALS: BP 133/72
[2018-10-31] MEDS: ASPIRIN ENTERIC COATED 81 MG TABLET.DR. PO SCH (08:41)
[2018-10-31] MEDS: GABAPENTIN 100 MG CAPSULE. PO SCH ×2 (08:41→14:43)
[2018-10-31] MEDS: LISINOPRIL 20 MG TABLET PO SCH (08:42)
[2018-10-31] MEDS: oxyCODONE IR 5 MG TABLET PO PRN (08:42)
--- NOTE | 2018-10-31 11:17 | PDOC2 ---
CONSULT Date of Consult Date of Consult DATE: 10/31/18 TIME: 11:03 Reason for Consult Reason for Consult: PAD, leg pain Referring Physician Referring Physician: Dr. Gore Identification/Chief Complaint Chief Complaint Chest pain and right leg pain Source Source: Chart review, Patient History of Present Illness Reason for Visit: This is a 48-year-old female who was admitted to the hospital with chest pain. Cardiology's has seen the patient and has determined her pain to in not cardiac in nature. In addition the patient states that she is having bilateral lower extremity pain along with swelling and tingling. Arterial ultrasound performed demonstrated mild degradation of the distal Doppler waveforms in both lower legs , no high-grade femoral or popliteal stenosis was identified. Lower extremity venous ultrasound reports no DVT. Thus we were consulted. In discussion with the patient she describes her pain as heaviness in her thighs greater when she is standing for long periods or ambulating. She also describes some tingling in her right great toe. The patient denies any visible varicose veins although she does report lower extremity swelling. 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 She reports she has never worn any compression therapy. She denies any symptoms of claudication or any TIA or strokelike symptoms. Past Medical History Cardiovascular: HTN Pulmonary: Asthma, Other (TSERING) CENTRAL NERVOUS SYSTEM: Other (no pertinent history ) GI: GERD, Other (esophageal stricture s/p dilation) Heme/Onc: Cancer (cervical ) Hepatobiliary: No pertinent hx Psych: Anxiety Musculoskeletal: Other (no pertinet hx) Rheumatologic: No pertinent hx Infectious disease: No pertinent hx ENT: No pertinent hx Renal/: No pertinent hx Endocrine: No pertinent hx Dermatology: No pertinent hx Past Surgical History Past Surgical History: Cholecystectomy, Hernia Repair, Hysterectomy Family History Family History: Coronary Artery Disease, Heart Disease Social History No ALCOHOL: none Drugs: None Lives: Alone Current Medications Current Medications Current Medications Aspirin (Ecotrin) 324 mg 1X ONCE PO ; Start 10/29/18 at 09:30; Stop 10/29/18 at 09:31; Status Cancel Nitroglycerin (Nitrostat) 0.4 mg PRN Q5MIN PRN SL CHEST PAIN Last administered on 10/29/18at 09:49; Start 10/29/18 at 09:15 Aspirin (Children'S Aspirin) 324 mg 1X ONCE PO Last administered on 10/29/18at 09:26; Start 10/29/18 at 09:30; Stop 10/29/18 at 09:31; Status DC Morphine Sulfate (Morphine Sulfate) 4 mg 1X ONCE IV Last administered on at 10:04; Start 10/29/18 at 10:15; Stop 10/29/18 at 10:16; Status DC Ondansetron HCl (Zofran) 4 mg 1X ONCE IV Last administered on 10/29/18at 10:03 ; Start 10/29/18 at 10:15; Stop 10/29/18 at 10:16; Status DC Ondansetron HCl (Zofran) 4 mg PRN Q8HRS PRN IV NAUSEA/VOMITING; Start 10/29/18 at 11:00; Stop 10/30/18 at 10:59; Status DC Acetaminophen (Tylenol) 650 mg PRN Q6HRS PRN PO MILD PAIN Last administered on 10/29/18at 17:22; Start 10/29/18 at 17:15 Aspirin (Ecotrin) 81 mg DAILYWBKFT PO Last administered on 10/31/18at 08:41; Start 10/30/18 at 08:00 Pantoprazole Sodium (Protonix) 40 mg DAILYAC PO Last administered on 10/29/18at 18:09; Start 10/29/18 at 18:00 Lisinopril (Prinivil) 40 mg DAILY PO Last administered on 10/31/18at 08:42; Start 10/30/18 at 09:00 Oxycodone HCl (Roxicodone) 5 mg PRN Q6HRS PRN PO SEVERE PAIN Last administered on 10/31/18at 08:42; Start 10/29/18 at 21:30 Info (FLU VACCINE SCREEN per RX) 1 each PRN 1X PRN MC SEE COMMENTS; Start 10/30 at 12:00; Status UNV Influenza Virus Vaccine (Afluria Trivalent [id number] Syringe) 0.5 ml ONCE ONCE VAX IM Last administered on 10/30/18at 14:50; Start 10/30/18 at 13:00; Stop at 13:01; Status DC Gabapentin (Neurontin) 100 mg TID PO Last administered on 10/31/18at 08:41; Start 10/30/18 at 14:00 Heparin Sodium (Porcine) (Heparin Sodium) 5,000 unit Q8HRS SQ Last administered on 10/31/18at 06:15; Start 10/30/18 at 22:00 Active Scripts Active Gabapentin (Gabapentin) 100 Mg Capsule 100 Mg PO TID 30 Days Triamcinolone Acetonide 0.1% Oint (Triamcinolone Acetonide) 15 Gm Oint...g. 1 Beatriz TP BID MIX WITH EUCERIN DIRECTED BY PHYSICIAN Reported Lisinopril 40 Mg Tablet 1 Tab PO DAILY Allergies Allergies: Coded Allergies: metronidazole (Verified Allergy, Intermediate, rash, 10/30/18) ROS Review of System GEN: Denies fever or weight loss HEENT: No blurred vision or sore throat CV: Denies chest pain currently RESP: No shortness of breath or cough GI: Denies nausea, vomiting : No dysuria or hematuria M/S: As per HPI NEURO: No gross deficits PSYCH: No depression Physical Exam General: Alert, Oriented X3 Lungs: Normal air movement Heart: Regular rate, Other (normal carotid pulses) Abdomen: Normal bowel sounds, Soft, No tenderness, Other (obese) Extremities: No clubbing, No cyanosis, Other (mild swelling left greate than right, 2 palpable radial, femoral and dorsalis pedis pulses) Neuro: Normal gait, Normal speech, Strength at 5/5 X4 ext, Sensation intact MUSCULOSKELETAL: Full range of motion without pain Vitals VITALS Vital Signs Date Time Temp Pulse Resp B/P (MAP) Pulse Ox O2 Delivery O2 Flow Rate FiO2 10/31/18 09:47 Room Air 10/31/18 08:42 66 133/72 10/31/18 07:00 97.8 16 97 97.8 Labs Labs Laboratory Tests Test 10/29/18 14:23 10/31/18 04:00 Troponin I Quantitative < 0.017 ng/mL (0.000-0.055) White Blood Count 7.6 x10^3/uL (4.0-11.0) Red Blood Count 4.41 x10^6/uL (3.50-5.40) Hemoglobin 12.4 g/dL (12.0-15.5) Hematocrit 37.8 % (36.0-47.0) Mean Corpuscular Volume 86 fL (79-100) Mean Corpuscular Hemoglobin 28 pg (25-35) Mean Corpuscular Hemoglobin Concent 33 g/dL (31-37) Red Cell Distribution Width 15.1 % (11.5-14.5) Platelet Count 227 x10^3/uL (140-400) Neutrophils (%) (Auto) 61 % (31-73) Lymphocytes (%) (Auto) 30 % (24-48) Monocytes (%) (Auto) 8 % (0-9) Eosinophils (%) (Auto) 2 % (0-3) Basophils (%) (Auto) 0 % (0-3) Neutrophils # (Auto) 4.6 x10^3uL (1.8-7.7) Lymphocytes # (Auto) 2.2 x10^3/uL (1.0-4.8) Monocytes # (Auto) 0.6 x10^3/uL (0.0-1.1) Eosinophils # (Auto) 0.1 x10^3/uL (0.0-0.7) Basophils # (Auto) 0.0 x10^3/uL (0.0-0.2) Sodium Level 143 mmol/L (136-145) Potassium Level 4.0 mmol/L (3.5-5.1) Chloride Level 105 mmol/L (98-107) Carbon Dioxide Level 31 mmol/L (21-32) Anion Gap 7 (6-14) Blood Urea Nitrogen 14 mg/dL (7-20) Creatinine 0.8 mg/dL (0.6-1.0) Estimated GFR (Cockcroft-Gault) 93.0 Glucose Level 94 mg/dL (70-99) Calcium Level 9.3 mg/dL (8.5-10.1) Laboratory Tests Test 10/31/18 04:00 White Blood Count 7.6 x10^3/uL (4.0-11.0) Red Blood Count 4.41 x10^6/uL (3.50-5.40) Hemoglobin 12.4 g/dL (12.0-15.5) Hematocrit 37.8 % (36.0-47.0) Mean Corpuscular Volume 86 fL (79-100) Mean Corpuscular Hemoglobin 28 pg (25-35) Mean Corpuscular Hemoglobin Concent 33 g/dL (31-37) Red Cell Distribution Width 15.1 % (11.5-14.5) Platelet Count 227 x10^3/uL (140-400) Neutrophils (%) (Auto) 61 % (31-73) Lymphocytes (%) (Auto) 30 % (24-48) Monocytes (%) (Auto) 8 % (0-9) Eosinophils (%) (Auto) 2 % (0-3) Basophils (%) (Auto) 0 % (0-3) Neutrophils # (Auto) 4.6 x10^3uL (1.8-7.7) Lymphocytes # (Auto) 2.2 x10^3/uL (1.0-4.8) Monocytes # (Auto) 0.6 x10^3/uL (0.0-1.1) Eosinophils # (Auto) 0.1 x10^3/uL (0.0-0.7) Basophils # (Auto) 0.0 x10^3/uL (0.0-0.2) Sodium Level 143 mmol/L (136-145) Potassium Level 4.0 mmol/L (3.5-5.1) Chloride Level 105 mmol/L (98-107) Carbon Dioxide Level 31 mmol/L (21-32) Anion Gap 7 (6-14) Blood Urea Nitrogen 14 mg/dL (7-20) Creatinine 0.8 mg/dL (0.6-1.0) Estimated GFR (Cockcroft-Gault) 93.0 Glucose Level 94 mg/dL (70-99) Calcium Level 9.3 mg/dL (8.5-10.1) Assessment/Plan Assessment/Plan Assessment/Plan: Leg pain and swelling, by physical exam patient has palpable distal pulses suggesting patient has adequate arterial flow without the need for any further vascular intervention. The patient's complaints and symptoms suggest she may have venous reflux disease with venous insufficiency. Recommend she follow up in our office for a full venous evaluation with ultrasound. Recommend compression therapy, NSAID daily, and leg elevation. I discussed history and examination with Dr. Muniz and he is in agreement with this plan. The patient may discharge to home from our standpoint and follow-up as an outpatient. CHARLENE TATE APRN Oct 31, 2018 11:17
[2018-10-31 11:24] VITALS: BP 125/77
--- NOTE | 2018-10-31 13:22 | PDOC3 ---
Discharge Summary [facility] Date of Admission: Oct 29, 2018 Discharge Date: Oct 31, 2018 Admitting Diagnosis chest pain could be gerd bl leg pain, neuropathy vs PAD h/o asthma , anxiety, cervical Ca HTN accelerated morbid obesity CONSULTS vascular card Brief Hospital Course Ms. Ibarra is a 48 old F, came for chest pain. Echo normal, neg trop. card consulted , signed off. the pain could be anxiety vs gerd. she also c/o bl leg pain, rt great toe needle pain, i told her could be neuropathy and add gabapentin and also ordered US to rule out PAD. US neg dvt. but mild PAD. vascular consulted, no intervention, dced CTA ordered by me, and asked her to fu as outpt. i talked to pt today, asked her if she remember what vascular told her. She could not tell me the details . so i told her again the plan and said hopefully she would remember what i told her. then she said she doesnot like the way i talk to her and no further question from me. HOWEVER, nurse later paged me again said pt want pain meds. dc time 35min. General: Alert, Oriented X3, Cooperative, No acute distress Heart: Regular rate, Normal S1, Normal S2, No murmurs Lungs: Clear Abdomen: Soft, No tenderness Extremities: No edema, Normal pulses Skin: No breakdown, No significant lesion Disposition home CONDITION AT DISCHARGE: Improved Scheduled Gabapentin (Gabapentin ), 100 MG PO TID Lisinopril (Lisinopril), 1 TAB PO DAILY, (Reported) Triamcinolone Acetonide (Triamcinolone Acetonide 0.1% Oint), 1 JUNIOR TP BID ASHWIN BRISENO MD Oct 31, 2018 13:22
--- NOTE | 2018-10-31 15:14 | NUR ---
Discharge Note: [facility] Discharge instructions and discharge home medications reviewed with Patient and a copy given. All questions have been answered and understanding verbalized. The following instructions and handouts were given: discharge instructions (diet, activity, etc.), medications, prescription (gabapentin), follow-up instructions, patient education. Patient discharged to home with self care via private vehicle.
== END 2018-10-31 14:45 | disposition home or self-care (01) | DRG 392 ==
LOC: ER 08:53 → ED HOLD 10:20 → 2 NORTH 12:08
PROVIDERS: ADMIT Internal Medicine; ATTEND Internal Medicine
DX: K21.9 Gastro-esophageal reflux disease without esophagitis (principal); Z68.42 Body mass index [BMI] 45.0-49.9, adult; C53.9 Malignant neoplasm of cervix uteri, unspecified; E66.01 Morbid (severe) obesity due to excess calories; F41.9 Anxiety disorder, unspecified; G47.33 Obstructive sleep apnea (adult) (pediatric); I10 Essential (primary) hypertension; J45.909 Unspecified asthma, uncomplicated; G62.9 Polyneuropathy, unspecified; I73.9 Peripheral vascular disease, unspecified; Z82.49 Family history of ischemic heart disease and other diseases of the circulatory system; Z85.41 Personal history of malignant neoplasm of cervix uteri; Z90.710 Acquired absence of both cervix and uterus; Z90.49 Acquired absence of other specified parts of digestive tract; Z88.8 Allergy status to other drugs, medicaments and biological substances
CPT/HCPCS: 36415; 71045; 80048; 80053; 83880; 84484; 85025; 85379; 90471; 90756; 93005; 93306; 93925; 93970; 96374; 96375; J1644; J2270; J2405; 99285-25; G0378; Q2035

== ENCOUNTER 2020-03-08 00:01 | Inpatient (IN) | payer BC ==
[~2020-03-08] VITALS: Ht 154.9 cm; Wt 97.0 kg
[~2020-03-08 00:01] MED LIST changes: +GABA-585 PO
--- NOTE | 2020-03-08 00:29 | PHYS DOC ---
Past Medical History Past Medical History: Anxiety, Asthma, Cancer, Hypertension Additional Past Medical Histor: Cervical Ca Past Surgical History: Cholecystectomy, Hysterectomy Additional Past Surgical Histo: Hernia, Esophagus Repair Smoking Status: Never Smoker Alcohol Use: None Drug Use: None General Adult EDM: Chief Complaint: CHEST PAIN HPI: HPI: Patient is a 49 year old female who presents with complaint of chest pain that started about 30 minutes prior to arrival. Patient describes pain as a lot of pressure sitting on her chest. She rates pain at an 8 out of 10. She states pain is primarily in the left chest and radiates up to her neck into her shoulder. She denies any nausea, vomiting or diaphoresis. Patient denies any history of cardiac disease and she has not had pain like this before. She does indicate that she has a family history of cardiac disease. [] Review of Systems: Review of Systems: Constitutional: Denies fever or chills. [] Respiratory: Denies cough or shortness of breath. [] Cardiovascular: Complains of chest pain. [] GI: Denies abdominal pain, nausea, vomiting. [] Neurologic: Denies headache, focal weakness or sensory changes. [] Heart Score: HEART Score for Chest Pain: HEART Score for Chest Pain Response (Comments) Value History Moderately Suspicious 1 ECG Nonspecific Repolarizatio 1 Age >45 - < 65 1 Risk Factors 1 or 2 Risk Factors 1 Troponin < Normal Limit 0 Total 4 Risk Factors: Risk Factors: DM, Current or recent (<one month) smoker, HTN, HLP, family history of CAD, obesity. Risk Scores: Score 0 - 3: 2.5% MACE over next 6 weeks - Discharge Home Score 4 - 6: 20.3% MACE over next 6 weeks - Admit for Clinical Observation Score 7 - 10: 72.7% MACE over next 6 weeks - Early Invasive Strategies Current Medications: Current Medications Medications (Trade) Dose Ordered Sig/[facility] Start Time Stop Time Status Last Admin Dose Admin Aspirin (Aspirin Chewable) 324 mg 1X ONCE 03/08/20 00:30 03/08/20 00:31 Nitroglycerin (Nitrostat) 0.4 mg PRN Q5MIN PRN 03/08/20 00:15 03/09/20 00:14 Sodium Chloride 1,000 ml @ 1,000 mls/hr Q1H 03/08/20 00:15 03/08/20 01:14 UNV Allergies: Allergies: Allergies Coded Allergies Type Severity Reaction Last Updated Verified metronidazole Allergy Intermediate rash 10/30/18 Yes Physical Exam: PE: Constitutional: Well developed, well nourished, no acute distress, non-toxic appearance. [] HENT: Normocephalic, atraumatic, bilateral external ears normal, oropharynx moist, no oral exudates, nose normal. [] Eyes: PERRLA, EOMI, conjunctiva normal, no discharge. [] Neck: Normal range of motion, no tenderness, supple. [] Cardiovascular: Regular rate and rhythm [] Lungs & Thorax: Bilateral breath sounds clear to auscultation [] Abdomen: Bowel sounds normal, soft, no tenderness. [] Skin: Warm, dry, no erythema, no rash. [] Extremities: No tenderness, no cyanosis, no clubbing, ROM intact, no edema. [] Neurologic: Alert and oriented X 3, no focal deficits noted. [] Current Patient Data: Vital Signs: Vital Signs Date Time Temp Pulse Resp B/P (MAP) Pulse Ox O2 Delivery O2 Flow Rate FiO2 03/08/20 00:06 98.5 93 18 147/89 (108) 100 Room Air 98.5 EKG: EKG: [] Radiology/Procedures: Radiology/Procedures: [] Impression: EKG demonstrates normal sinus rhythm with rate of 97. Course & Med Decision Making: Course & Med Decision Making Pertinent Labs and Imaging studies reviewed. (See chart for details) [] Dragon Disclaimer: Dragon Disclaimer: This electronic medical record was generated, in whole or in part, using a voice recognition dictation system. Departure Departure Impression: Primary Impression: Chest pain Qualified Codes: R07.9 - Chest pain, unspecified Disposition: ADMITTED INPATIENT Admitting Physician: AMBROSIO Condition: IMPROVED Referrals: NO PCP (PCP) RAMIREZ PAL Jr. DO March 08, 2020 00:29
[2020-03-08] MEDS ORDERED: ASPIRIN CHEWABLE 81 MG TABLET. PO ONE (00:30)
[2020-03-08] MEDS ORDERED: IV NORMAL SALINE 1000ML BAG 1,000 ML IV SCH (00:30)
[2020-03-08] MEDS: NITROGLYCERIN SUBLINGUAL 0.4 MG BOTTLE OF 25. SL PRN ×2 (00:32→01:17)
[2020-03-08 00:40] LABS: BASO # 0.1 x10^3/uL (0.0-0.2); BASO % 1 % (0-3); EOS # 0.1 x10^3/uL (0.0-0.7); EOS % 1 % (0-3); HEMATOCRIT 37.9 % (36.0-47.0); HEMOGLOBIN 12.3 g/dL (12.0-15.5); LYMPH # 3.3 x10^3/uL (1.0-4.8); LYMPH % 27 % (24-48); MEAN CORPUSCULAR HEMOGLOBIN 28 pg (25-35); MEAN CORPUSCULAR HGB CONC 33 g/dL (31-37); MEAN CORPUSCULAR VOLUME 85 fL (79-100); MONO # 0.9 x10^3/uL (0.0-1.1); MONO % 7 % (0-9); NEUT # 7.7 x10^3/uL (1.8-7.7); NEUT % 64 % (31-73); PLATELET COUNT 234 x10^3/uL (140-400); RED BLOOD COUNT 4.48 x10^6/uL (3.50-5.40); RED CELL DISTRIBUTION WIDTH 15.6 % (11.5-14.5); WHITE BLOOD COUNT 12.1 x10^3/uL (4.0-11.0)
[2020-03-08 01:04] LABS: ALBUMIN 3.8 g/dL (3.4-5.0); ALBUMIN/GLOBULIN RATIO 1.1 (1.0-1.7); CALCIUM 9.6 mg/dL (8.5-10.1); CREATININE 0.9 mg/dL (0.6-1.0); GFR 80.9; MAGNESIUM 1.8 mg/dL (1.8-2.4); TOTAL BILIRUBIN 0.3 mg/dL (0.2-1.0); TOTAL PROTEIN 7.4 g/dL (6.4-8.2)
[2020-03-08 01:26] LABS: POTASSIUM 2.8 mmol/L (3.5-5.1)
[2020-03-08] MEDS ORDERED: POTASSIUM CHLORIDE 20 MEQ TABLET.ER. PO ONE ×2 (02:30→09:45)
[2020-03-08] MEDS ORDERED: MORPHINE SULFATE 4 MG/ML VIAL. IV ONE (02:30)
[2020-03-08] MEDS ORDERED: ONDANSETRON PF 4 MG/2 ML VIAL. IVP ONE (03:00)
[2020-03-08] MEDS ORDERED: ONDANSETRON PF 4 MG/2 ML VIAL. IV PRN (03:30)
--- NOTE | 2020-03-08 03:45 | RAD ---
EXAM: CHEST ONE VIEW. HISTORY: Chest pain. COMPARISON: 10/29/2018. FINDINGS: A frontal view of the chest is obtained. There are no confluent infiltrates. There is a calcified granuloma in the left base. There is no pneumothorax or pleural effusion. The heart is not enlarged. IMPRESSION: 1. No confluent infiltrates. Electronically signed by: Hiren Minor MD (03/08/2020 3:41 AM) [facility]
[2020-03-08] MEDS ORDERED: LISI1TAB19 PO (04:34)
[2020-03-08] MEDS ORDERED: ESCITALOPRAM OX20 MG PO (04:34)
[2020-03-08] MEDS ORDERED: LISD50CA3 PO (04:34)
[2020-03-08] MEDS: MORPHINE SULFATE 4 MG/ML VIAL. IV PRN ×3 (04:44→19:54)
[2020-03-08 07:20] VITALS: BP 154/83
[2020-03-08] MEDS ORDERED: CITALOPRAM 20 MG TABLET. PO SCH ×2 (10:00→21:00)
[2020-03-08] MEDS ORDERED: MAGNESIUM SULFATE 2GM 50 ML IV ONE (10:00)
--- NOTE | 2020-03-08 10:07 | PDOC1 ---
History and Physical Date of Admission Date of Admission DATE: 03/08/20 TIME: 10:02 History of Present Illness History of Present Illness Ms. Zhang is a 49 year old female admit iwth left arm and chest pain. She was at the [facility] with her daughter, walkeed the store, no extra lifting or stress, then when she came home ,she had 30 minutes of severe 8/10 pain that started as a tingle sensatino in her left arm. her pain is now 5of 10 She states pain is primarily in the left chest and radiates up to her neck into her shoulder. Past Medical History Cardiovascular: HTN Pulmonary: Asthma, Other CENTRAL NERVOUS SYSTEM: Other GI: GERD, Other Heme/Onc: Cancer Hepatobiliary: No pertinent hx Psych: Anxiety Musculoskeletal: Other Rheumatologic: No pertinent hx Infectious disease: No pertinent hx Renal/: No pertinent hx Endocrine: No pertinent hx Past Surgical History Past Surgical History: Cholecystectomy, Hernia Repair, Hysterectomy Family History Family History: Coronary Artery Disease, Heart Disease Social History Smoke: No ALCOHOL: none Drugs: None Current Medications Current Medications Current Medications Aspirin (Aspirin Chewable) 324 mg 1X ONCE PO Last administered on 03/08/20at 00:31; Start 03/08/20 at 00:30; Stop 03/08/20 at 00:31; Status DC Nitroglycerin (Nitrostat) 0.4 mg PRN Q5MIN PRN SL CP RATING > 1/10 Last administered on 03/08/20at 01:17; Start 03/08/20 at 00:15; Stop 03/09/20 at 00:14 Sodium Chloride 1,000 ml @ 1,000 mls/hr Q1H IV Last administered on 03/08/20at 01:20; Start 03/08/20 at 00:30; Stop 03/08/20 at 01:29; Status DC Potassium Chloride (Klor-Con) 40 meq 1X ONCE PO Last administered on 03/08/20at 02:01; Start 03/08/20 at 02:30; Stop 03/08/20 at 02:31; Status DC Morphine Sulfate (Morphine Sulfate) 4 mg 1X ONCE IV Last administered on 03/08/20at 02:02; Start 03/08/20 at 02:30; Stop 03/08/20 at 02:31; Status DC Ondansetron HCl (Zofran) 4 mg 1X ONCE IVP Last administered on 03/08/20at 02:51; Start 03/08/20 at 03:00; Stop 03/08/20 at 03:01; Status DC Ondansetron HCl (Zofran) 4 mg PRN Q8HRS PRN IV NAUSEA/VOMITING 1ST CHOICE; Start 03/08/20 at 03:30; Stop 03/09/20 at 03:29 Morphine Sulfate (Morphine Sulfate) 4 mg PRN Q2HR PRN IV SEVERE PAIN 7-10 Last administered on 03/08/20at 04:44; Start 03/08/20 at 03:30; Stop 03/09/20 at 03:29 Magnesium Sulfate 50 ml @ 25 mls/hr 1X ONCE IV ; Start 03/08/20 at 10:00; Stop 03/08/20 at 11:59 Potassium Chloride (Klor-Con) 40 meq 1X ONCE PO ; Start 03/08/20 at 09:45; Stop 03/08/20 at 09:46; Status DC Citalopram Hydrobromide (CeleXA) 40 mg DAILY PO ; Start 03/08/20 at 10:00 Lisinopril (Prinivil) 20 mg DAILY PO ; Start 03/08/20 at 10:00 Hydrochlorothiazide (Microzide) 12.5 mg DAILY PO ; Start 03/08/20 at 10:00 Active Scripts Active Reported Vyvanse (Lisdexamfetamine Dimesylate) 50 Mg Capsule 1 Cap PO DAILY MDD 1 Capsule(s) 5 Days Escitalopram Oxalate 20 Mg Tablet 30 Mg PO DAILY Lisinopril-Hctz 20-12.5 Mg Tab (Lisinopril/Hydrochlorothiazide) 1 Each Tablet 1 Tab PO DAILY Allergies Allergies: Coded Allergies: metronidazole (Verified Allergy, Intermediate, rash, 10/30/18) ROS General: No: Chills, Night Sweats, Fatigue, Malaise, Appetite, Other PSYCHOLOGICAL ROS: No: Anxiety, Behavioral Disorder, Concentration difficultie, Decreased libido, Depression, Disorientation, Hallucinations, Hostility, Irritablity, Memory difficulties, Mood Swings, Obsessive thoughts, Physical abuse, Sexual abuse, Sleep disturbances, Suicidal ideation, Other Eyes: No Blurry vision, No Decreased vision, No Double vision, No Dry eyes, No Excessive tearing, No Eye Pain, No Itchy Eyes, No Loss of vision, No Photophobia, No Scotomata, No Uses contacts, No Uses glasses, No Other HEENT: No: Heacaches, Visual Changes, Hearing change, Nasal congestion, Nasal discharge, Oral lesions, Sinus pain, Sore Throat, Epistaxis, Sneezing, Snoring, Tinnitus, Vertigo, Vocal changes, Other Respiratory: No: Cough, Hemoptysis, Orthopnea, Pleuritic Pain, Shortness of breath, SOB with excertion, Sputum Changes, Stridor, Tachypnea, Wheezing, Other Cardiovascular: No Chest Pain, No Palpitations, No Orthopnea, No Paroxysmal Noc. Dyspnea, No Edema, No Lt Headedness, No Other Gastrointestinal: No Nausea, No Vomiting, No Abdominal Pain, No Diarrhea, No Constipation, No Melena, No Hematochezia, No Other Genitourinary: No Dysuria, No Frequency, No Incontinence, No Hematuria, No Retention, No Discharge, No Urgency, No Pain, No Flank Pain, No Other, No , No , No , No , No , No , No Musculoskeletal: No Gait Disturbance, No Joint Pain, No Joint Stiffness, No Joint Swelling, No Muscle Pain, No Muscular Weakness, No Pain In:, No Swelling In:, No Other Neurological: No Behavorial Changes, No Bowel/Bladder ControlChng, No Confusion, No Dizziness, No Gait Disturbance, No Headaches, No Impaired Coord/balance, No Memory Loss, No Numbness/Tingling, No Seizures, No Speech Problems, No Tremors, No Visual Changes, No Weakness, No Other Skin: Yes Dry Skin; No Eczema, No Hair Changes, No Lumps, No Mole Changes, No Mottling, No Nail Changes, No Pruritus, No Rash, No Skin Lesion Changes, No Other, No Acne Physical Exam General: Alert, Cooperative, No acute distress HEENT: PERRLA, EOMI, Mucous membr. moist/pink Lungs: Clear to auscultation, Normal air movement Heart: S1S2, RRR, no gallops, no murmurs Abdomen: Normal bowel sounds, Soft Extremities: No edema, Normal pulses Skin: No rashes, No significant lesion Neuro: Normal speech, Normal tone, Sensation intact Psych/Mental Status: Mental status NL, Mood NL Vitals Vitals Vital Signs Date Time Temp Pulse Resp B/P (MAP) Pulse Ox O2 Delivery O2 Flow Rate FiO2 03/08/20 07:40 Room Air 03/08/20 07:20 98.1 95 18 154/83 (106) 96 98.1 Labs Labs Laboratory Tests Test 03/08/20 00:32 03/08/20 06:45 White Blood Count 12.1 x10^3/uL (4.0-11.0) Red Blood Count 4.48 x10^6/uL (3.50-5.40) Hemoglobin 12.3 g/dL (12.0-15.5) Hematocrit 37.9 % (36.0-47.0) Mean Corpuscular Volume 85 fL (79-100) Mean Corpuscular Hemoglobin 28 pg (25-35) Mean Corpuscular Hemoglobin Concent 33 g/dL (31-37) Red Cell Distribution Width 15.6 % (11.5-14.5) Platelet Count 234 x10^3/uL (140-400) Neutrophils (%) (Auto) 64 % (31-73) Lymphocytes (%) (Auto) 27 % (24-48) Monocytes (%) (Auto) 7 % (0-9) Eosinophils (%) (Auto) 1 % (0-3) Basophils (%) (Auto) 1 % (0-3) Neutrophils # (Auto) 7.7 x10^3/uL (1.8-7.7) Lymphocytes # (Auto) 3.3 x10^3/uL (1.0-4.8) Monocytes # (Auto) 0.9 x10^3/uL (0.0-1.1) Eosinophils # (Auto) 0.1 x10^3/uL (0.0-0.7) Basophils # (Auto) 0.1 x10^3/uL (0.0-0.2) Sodium Level 143 mmol/L (136-145) Potassium Level 2.8 mmol/L (3.5-5.1) Chloride Level 105 mmol/L (98-107) Carbon Dioxide Level 29 mmol/L (21-32) Anion Gap 9 (6-14) Blood Urea Nitrogen 11 mg/dL (7-20) Creatinine 0.9 mg/dL (0.6-1.0) Estimated GFR (Cockcroft-Gault) 80.9 BUN/Creatinine Ratio 12 (6-20) Glucose Level 100 mg/dL (70-99) Calcium Level 9.6 mg/dL (8.5-10.1) Magnesium Level 1.8 mg/dL (1.8-2.4) Total Bilirubin 0.3 mg/dL (0.2-1.0) Aspartate Amino Transf (AST/SGOT) 16 U/L (15-37) Alanine Aminotransferase (ALT/SGPT) 15 U/L (14-59) Alkaline Phosphatase 73 U/L (46-116) Troponin I Quantitative < 0.017 ng/mL (0.000-0.055) < 0.017 ng/mL (0.000-0.055) PU-Pwy-[id number]-Type Natriuretic Peptide 16 pg/mL (0-124) Total Protein 7.4 g/dL (6.4-8.2) Albumin 3.8 g/dL (3.4-5.0) Albumin/Globulin Ratio 1.1 (1.0-1.7) Lipase 90 U/L (73-393) Laboratory Tests Test 03/08/20 00:32 03/08/20 06:45 White Blood Count 12.1 x10^3/uL (4.0-11.0) Red Blood Count 4.48 x10^6/uL (3.50-5.40) Hemoglobin 12.3 g/dL (12.0-15.5) Hematocrit 37.9 % (36.0-47.0) Mean Corpuscular Volume 85 fL (79-100) Mean Corpuscular Hemoglobin 28 pg (25-35) Mean Corpuscular Hemoglobin Concent 33 g/dL (31-37) Red Cell Distribution Width 15.6 % (11.5-14.5) Platelet Count 234 x10^3/uL (140-400) Neutrophils (%) (Auto) 64 % (31-73) Lymphocytes (%) (Auto) 27 % (24-48) Monocytes (%) (Auto) 7 % (0-9) Eosinophils (%) (Auto) 1 % (0-3) Basophils (%) (Auto) 1 % (0-3) Neutrophils # (Auto) 7.7 x10^3/uL (1.8-7.7) Lymphocytes # (Auto) 3.3 x10^3/uL (1.0-4.8) Monocytes # (Auto) 0.9 x10^3/uL (0.0-1.1) Eosinophils # (Auto) 0.1 x10^3/uL (0.0-0.7) Basophils # (Auto) 0.1 x10^3/uL (0.0-0.2) Sodium Level 143 mmol/L (136-145) Potassium Level 2.8 mmol/L (3.5-5.1) Chloride Level 105 mmol/L (98-107) Carbon Dioxide Level 29 mmol/L (21-32) Anion Gap 9 (6-14) Blood Urea Nitrogen 11 mg/dL (7-20) Creatinine 0.9 mg/dL (0.6-1.0) Estimated GFR (Cockcroft-Gault) 80.9 BUN/Creatinine Ratio 12 (6-20) Glucose Level 100 mg/dL (70-99) Calcium Level 9.6 mg/dL (8.5-10.1) Magnesium Level 1.8 mg/dL (1.8-2.4) Total Bilirubin 0.3 mg/dL (0.2-1.0) Aspartate Amino Transf (AST/SGOT) 16 U/L (15-37) Alanine Aminotransferase (ALT/SGPT) 15 U/L (14-59) Alkaline Phosphatase 73 U/L (46-116) Troponin I Quantitative < 0.017 ng/mL (0.000-0.055) < 0.017 ng/mL (0.000-0.055) YR-Xih-K-Type Natriuretic Peptide 16 pg/mL (0-124) Total Protein 7.4 g/dL (6.4-8.2) Albumin 3.8 g/dL (3.4-5.0) Albumin/Globulin Ratio 1.1 (1.0-1.7) Lipase 90 U/L (73-393) VTE Prophylaxis Ordered VTE Prophylaxis Devices: Yes VTE Pharmacological Prophylaxi: Yes Assessment/Plan Assessment/Plan chest pain, left sided chest pain htn obese, BMI 40 attention deficit anxiety SHANTE CABRERA MD March 08, 2020 10:07
[2020-03-08 10:08] LABS: CHOLESTEROL/HDL RATIO 3.1
[2020-03-08] MEDS ORDERED: NITROGLYCERIN SUBLINGUAL 0.4 MG BOTTLE OF 25. SL PRN (10:15)
[2020-03-08] MEDS ORDERED: LIDO:MAALOX 1:1 20 ML SINGLE DOSE. PO ONE (10:15)
[2020-03-08] MEDS: LISINOPRIL 20 MG TABLET PO SCH (10:24)
[2020-03-08] MEDS: hydroCHLOROthiazide 12.5 MG CAPSULE PO SCH (10:24)
[2020-03-08] MEDS: amLODIPine BESYLATE 5 MG TABLET PO SCH (10:25)
[2020-03-08 11:20] VITALS: BP 135/65
--- NOTE | 2020-03-08 11:29 | EKG ---
[facility] [address] [place] [address] Test Date: 2020-03-08 Test Time: 11:20:59 Pat Name: NGOC CARDOZODepartment: Room: 204 1 Gender: F [employer]: LAZARA : 1970 Requested By: RAMIREZ PAL Order Number: [id number] Reading MD: Baron Dudley Measurements Intervals [place] Rate: 92 P: 51 AR: 146 QRS: -11 QRSD: 80 T: 70 QT: 376 QTc: 470 Interpretive Statements SINUS RHYTHM LEFTWARD AXIS Electronically Signed On 03-10-2020 15:45:37 CDT by Baron Dudley
--- NOTE | 2020-03-08 11:52 | PDOC2 ---
CONSULT Date of Consult Date of Consult DATE: 03/08/20 TIME: 11:48 Reason for Consult Reason for Consult: Chest pain Referring Physician Referring Physician: Dr. Valerio Identification/Chief Complaint Chief Complaint Chest pain Source Source: Chart review, Patient History of Present Illness Reason for Visit: The patient is a 49-year-old female who was admitted last night through the emergency room for episodes of chest pain. Patient states she had a 20 to 30- minute episode of pain that was in her upper chest and left shoulder. It was not affected by deep inspiration or movement. Her initial EKG reportedly showed no ischemic changes. Troponin has been normal x2. Patient is feeling much better today. She has no history of coronary disease, congestive heart failure or cardiac arrhythmias. She does has does have a history of hypertension and possible asthma. She also has had some type of esophageal surgery in the past. Past Medical History Cardiovascular: HTN Pulmonary: Asthma, Other CENTRAL NERVOUS SYSTEM: Other GI: GERD, Other Heme/Onc: Cancer Hepatobiliary: No pertinent hx Psych: Anxiety Musculoskeletal: Other Rheumatologic: No pertinent hx Infectious disease: No pertinent hx Renal/: No pertinent hx Endocrine: No pertinent hx Past Surgical History Past Surgical History: Cholecystectomy, Hernia Repair, Hysterectomy Family History Family History: Coronary Artery Disease, Heart Disease Social History No ALCOHOL: none Drugs: None Lives: Alone Current Medications Current Medications Current Medications Aspirin (Aspirin Chewable) 324 mg 1X ONCE PO Last administered on 03/08/20at 00:31; Start 03/08/20 at 00:30; Stop 03/08/20 at 00:31; Status DC Nitroglycerin (Nitrostat) 0.4 mg PRN Q5MIN PRN SL CP RATING > 1/10 Last administered on 03/08/20at 01:17; Start 03/08/20 at 00:15; Stop 03/08/20 at 10:03; Status DC Sodium Chloride 1,000 ml @ 1,000 mls/hr Q1H IV Last administered on 03/08/20at 01:20; Start 03/08/20 at 00:30; Stop 03/08/20 at 01:29; Status DC Potassium Chloride (Klor-Con) 40 meq 1X ONCE PO Last administered on 03/08/20at 02:01; Start 03/08/20 at 02:30; Stop 03/08/20 at 02:31; Status DC Morphine Sulfate (Morphine Sulfate) 4 mg 1X ONCE IV Last administered on 03/08/20at 02:02; Start 03/08/20 at 02:30; Stop 03/08/20 at 02:31; Status DC Ondansetron HCl (Zofran) 4 mg 1X ONCE IVP Last administered on 03/08/20at 02:51; Start 03/08/20 at 03:00; Stop 03/08/20 at 03:01; Status DC Ondansetron HCl (Zofran) 4 mg PRN Q8HRS PRN IV NAUSEA/VOMITING 1ST CHOICE; Start 03/08/20 at 03:30; Stop 03/09/20 at 03:29 Morphine Sulfate (Morphine Sulfate) 4 mg PRN Q2HR PRN IV SEVERE PAIN 7-10 Last administered on 03/08/20at 10:19; Start 03/08/20 at 03:30; Stop 03/09/20 at 03:29 Magnesium Sulfate 50 ml @ 25 mls/hr 1X ONCE IV Last administered on 03/08/20at 10:23; Start 03/08/20 at 10:00; Stop 03/08/20 at 11:59 Potassium Chloride (Klor-Con) 40 meq 1X ONCE PO Last administered on 03/08/20at 10:24; Start 03/08/20 at 09:45; Stop 03/08/20 at 09:46; Status DC Citalopram Hydrobromide (CeleXA) 40 mg DAILY PO Last administered on 03/08/20at 10:25; Start 03/08/20 at 10:00 Lisinopril (Prinivil) 20 mg DAILY PO Last administered on 03/08/20at 10:24; Start 03/08/20 at 10:00 Hydrochlorothiazide (Microzide) 12.5 mg DAILY PO Last administered on 03/08/20at 10:24; Start 03/08/20 at 10:00 Nitroglycerin (Nitrostat) 0.4 mg PRN Q5MIN PRN SL CHEST PAIN; Start 03/08/20 at 10:15 Amlodipine Besylate (Norvasc) 2.5 mg DAILY PO Last administered on 03/08/20at 10:25; Start 03/08/20 at 10:30 Multi-Ingredient Mouthwash/Gargle (Gi Cocktail) 20 ml 1X ONCE PO Last administered on 03/08/20at 10:23; Start 03/08/20 at 10:15; Stop 03/08/20 at 10:16; Status DC Active Scripts Active Reported Vyvanse (Lisdexamfetamine Dimesylate) 50 Mg Capsule 1 Cap PO DAILY MDD 1 Capsule(s) 5 Days Escitalopram Oxalate 20 Mg Tablet 30 Mg PO DAILY Lisinopril-Hctz 20-12.5 Mg Tab (Lisinopril/Hydrochlorothiazide) 1 Each Tablet 1 Tab PO DAILY Allergies Allergies: Coded Allergies: metronidazole (Verified Allergy, Intermediate, rash, 10/30/18) ROS Cardiovascular: yes Chest Pain Physical Exam General: No acute distress HEENT: Atraumatic Lungs: Clear to auscultation Heart: Regular rate Abdomen: Normal bowel sounds Vitals VITALS Vital Signs Date Time Temp Pulse Resp B/P (MAP) Pulse Ox O2 Delivery O2 Flow Rate FiO2 03/08/20 10:49 18 Room Air 03/08/20 10:25 95 154/83 03/08/20 07:20 98.1 96 98.1 Labs Labs Laboratory Tests Test 03/08/20 00:32 03/08/20 06:45 03/08/20 09:45 White Blood Count 12.1 x10^3/uL (4.0-11.0) Red Blood Count 4.48 x10^6/uL (3.50-5.40) Hemoglobin 12.3 g/dL (12.0-15.5) Hematocrit 37.9 % (36.0-47.0) Mean Corpuscular Volume 85 fL (79-100) Mean Corpuscular Hemoglobin 28 pg (25-35) Mean Corpuscular Hemoglobin Concent 33 g/dL (31-37) Red Cell Distribution Width 15.6 % (11.5-14.5) Platelet Count 234 x10^3/uL (140-400) Neutrophils (%) (Auto) 64 % (31-73) Lymphocytes (%) (Auto) 27 % (24-48) Monocytes (%) (Auto) 7 % (0-9) Eosinophils (%) (Auto) 1 % (0-3) Basophils (%) (Auto) 1 % (0-3) Neutrophils # (Auto) 7.7 x10^3/uL (1.8-7.7) Lymphocytes # (Auto) 3.3 x10^3/uL (1.0-4.8) Monocytes # (Auto) 0.9 x10^3/uL (0.0-1.1) Eosinophils # (Auto) 0.1 x10^3/uL (0.0-0.7) Basophils # (Auto) 0.1 x10^3/uL (0.0-0.2) Sodium Level 143 mmol/L (136-145) Potassium Level 2.8 mmol/L (3.5-5.1) Chloride Level 105 mmol/L (98-107) Carbon Dioxide Level 29 mmol/L (21-32) Anion Gap 9 (6-14) Blood Urea Nitrogen 11 mg/dL (7-20) Creatinine 0.9 mg/dL (0.6-1.0) Estimated GFR (Cockcroft-Gault) 80.9 BUN/Creatinine Ratio 12 (6-20) Glucose Level 100 mg/dL (70-99) Calcium Level 9.6 mg/dL (8.5-10.1) Magnesium Level 1.8 mg/dL (1.8-2.4) Total Bilirubin 0.3 mg/dL (0.2-1.0) Aspartate Amino Transf (AST/SGOT) 16 U/L (15-37) Alanine Aminotransferase (ALT/SGPT) 15 U/L (14-59) Alkaline Phosphatase 73 U/L (46-116) Troponin I Quantitative < 0.017 ng/mL (0.000-0.055) < 0.017 ng/mL (0.000-0.055) < 0.017 ng/mL (0.000-0.055) QP-Ttq-G-Type Natriuretic Peptide 16 pg/mL (0-124) Total Protein 7.4 g/dL (6.4-8.2) Albumin 3.8 g/dL (3.4-5.0) Albumin/Globulin Ratio 1.1 (1.0-1.7) Lipase 90 U/L (73-393) Triglycerides Level 42 mg/dL (0-150) Cholesterol Level 129 mg/dL (0-200) LDL Cholesterol, Calculated 80 mg/dL (0-100) VLDL Cholesterol, Calculated 8 mg/dL (0-40) Non-HDL Cholesterol Calculated 88 mg/dL (0-129) HDL Cholesterol 41 mg/dL (40-60) Cholesterol/HDL Ratio 3.1 Thyroid Stimulating Hormone (TSH) 1.406 uIU/mL (0.358-3.74) Laboratory Tests Test 03/08/20 00:32 03/08/20 06:45 03/08/20 09:45 White Blood Count 12.1 x10^3/uL (4.0-11.0) Red Blood Count 4.48 x10^6/uL (3.50-5.40) Hemoglobin 12.3 g/dL (12.0-15.5) Hematocrit 37.9 % (36.0-47.0) Mean Corpuscular Volume 85 fL (79-100) Mean Corpuscular Hemoglobin 28 pg (25-35) Mean Corpuscular Hemoglobin Concent 33 g/dL (31-37) Red Cell Distribution Width 15.6 % (11.5-14.5) Platelet Count 234 x10^3/uL (140-400) Neutrophils (%) (Auto) 64 % (31-73) Lymphocytes (%) (Auto) 27 % (24-48) Monocytes (%) (Auto) 7 % (0-9) Eosinophils (%) (Auto) 1 % (0-3) Basophils (%) (Auto) 1 % (0-3) Neutrophils # (Auto) 7.7 x10^3/uL (1.8-7.7) Lymphocytes # (Auto) 3.3 x10^3/uL (1.0-4.8) Monocytes # (Auto) 0.9 x10^3/uL (0.0-1.1) Eosinophils # (Auto) 0.1 x10^3/uL (0.0-0.7) Basophils # (Auto) 0.1 x10^3/uL (0.0-0.2) Sodium Level 143 mmol/L (136-145) Potassium Level 2.8 mmol/L (3.5-5.1) Chloride Level 105 mmol/L (98-107) Carbon Dioxide Level 29 mmol/L (21-32) Anion Gap 9 (6-14) Blood Urea Nitrogen 11 mg/dL (7-20) Creatinine 0.9 mg/dL (0.6-1.0) Estimated GFR (Cockcroft-Gault) 80.9 BUN/Creatinine Ratio 12 (6-20) Glucose Level 100 mg/dL (70-99) Calcium Level 9.6 mg/dL (8.5-10.1) Magnesium Level 1.8 mg/dL (1.8-2.4) Total Bilirubin 0.3 mg/dL (0.2-1.0) Aspartate Amino Transf (AST/SGOT) 16 U/L (15-37) Alanine Aminotransferase (ALT/SGPT) 15 U/L (14-59) Alkaline Phosphatase 73 U/L (46-116) Troponin I Quantitative < 0.017 ng/mL (0.000-0.055) < 0.017 ng/mL (0.000-0.055) < 0.017 ng/mL (0.000-0.055) MJ-Btk-J-Type Natriuretic Peptide 16 pg/mL (0-124) Total Protein 7.4 g/dL (6.4-8.2) Albumin 3.8 g/dL (3.4-5.0) Albumin/Globulin Ratio 1.1 (1.0-1.7) Lipase 90 U/L (73-393) Triglycerides Level 42 mg/dL (0-150) Cholesterol Level 129 mg/dL (0-200) LDL Cholesterol, Calculated 80 mg/dL (0-100) VLDL Cholesterol, Calculated 8 mg/dL (0-40) Non-HDL Cholesterol Calculated 88 mg/dL (0-129) HDL Cholesterol 41 mg/dL (40-60) Cholesterol/HDL Ratio 3.1 Thyroid Stimulating Hormone (TSH) 1.406 uIU/mL (0.358-3.74) Images Images Chest x-ray with no acute changes. Assessment/Plan Assessment/Plan 1. Chest pain. Pain has largely resolved. Troponins have been normal x2. EKG reportedly shows no acute ischemic changes and we are rechecking. At this time will complete a rule out protocol including 1 more set of cardiac enzymes. Wo uld increase activities. If patient is stable with increased activity she could be discharge from a cardiac viewpoint. We will arrange an outpatient stress test. 2. Hypertension. Reasonable control. Continue present medications and monitor. 3. Asthma. No wheezing on examination. Patient overall is feeling well. Thank you for allowing us to participate in the care of your patient. ADRY HERNANDEZ MD March 08, 2020 11:52
[2020-03-08 15:30] VITALS: BP 116/77
--- NOTE | 2020-03-08 15:32 | EKG ---
[facility] [address] [place] [address] Test Date: 2020-03-08 Test Time: 00:09:44 Pat Name: NGOC CARDOZODepartment: Room: 204 1 Gender: F Private Duty Aide: : 1970 Requested By: ADRY HERNANDEZ Order Number: [id number] Reading MD: Khanh Gutierrez MD Measurements Intervals [place] Rate: 97 P: 48 [place]: 154 QRS: -9 QRSD: 78 T: -26 QT: 386 QTc: 495 Interpretive Statements SINUS RHYTHM VENTRICULAR PREMATURE COMPLEX(ES) NON-SPECIFIC ST/T CHANGES PROLONGED QT Electronically Signed On 03-10-2020 14:20:38 CDT by Khanh Gutierrez MD
[2020-03-08 16:01] LABS: BILIRUBIN,URINE NEGATIVE (NEG); CLARITY,URINE CLEAR; COLOR,URINE YELLOW; NITRITE,URINE NEGATIVE (NEG); PROTEIN,URINE NEGATIVE (NEG-TRACE); UROBILINOGEN,URINE 0.2 mg/dL (0.2 mg/dL)
[2020-03-08 16:11] LABS: HYALINE CASTS, URINE FEW /HPF; SQUAMOUS EPITHELIAL CELL,UR MANY /LPF
[2020-03-08 16:12] LABS: BACTERIA,URINE MANY /HPF (0-FEW)
[2020-03-08] MEDS: ACETAMINOPHEN 325 MG TABLET. PO PRN (18:31)
[2020-03-08 19:45] VITALS: BP 127/67
[2020-03-08 22:54] VITALS: BP 158/83
[2020-03-09 03:45] VITALS: BP 139/77
[2020-03-09 05:55] LABS: CALCIUM 8.5 mg/dL (8.5-10.1); CREATININE 0.7 mg/dL (0.6-1.0); GFR 108.1; POTASSIUM 3.9 mmol/L (3.5-5.1)
[2020-03-09 07:30] VITALS: BP 117/70
[2020-03-09] MEDS: amLODIPine BESYLATE 5 MG TABLET PO SCH (08:17)
[2020-03-09] MEDS: hydroCHLOROthiazide 12.5 MG CAPSULE PO SCH (08:17)
[2020-03-09] MEDS: LISINOPRIL 20 MG TABLET PO SCH (08:17)
[2020-03-09] MEDS: ACETAMINOPHEN 325 MG TABLET. PO PRN (08:17)
[2020-03-09] MEDS ORDERED: HYDROcodone/APAP 5/325MG 1 TAB TABLET PO PRN (09:45)
[2020-03-09] MEDS ORDERED: ONDANSETRON PF 4 MG/2 ML VIAL. IVP PRN (09:45)
--- NOTE | 2020-03-09 11:25 | PDOC ---
[facility] PROGRESS NOTE Chief Complaint Chief Complaint Chest pain History of Present Illness History of Present Illness Patient seen and examined Discussed with clipman Patient at baseline We will discharge Manager [employer] arranging outpatient stress test Vitals/I&O Vitals/I&O: Vital Signs Date Time Temp Pulse Resp B/P (MAP) Pulse Ox O2 Delivery O2 Flow Rate FiO2 03/09/20 10:40 18 Room Air 03/09/20 08:17 76 117/70 03/09/20 07:30 98.1 94 98.1 I & O 03/08/20 03/08/20 03/09/20 15:00 23:00 07:00 Intake Total 360 ml 1400 ml 500 ml Balance 360 ml 1400 ml 500 ml Physical Exam General: No acute distress Heart: Regular rate Lungs: Clear Abdomen: Normal bowel sounds Extremities: No edema, Normal pulses Skin: No rashes, No significant lesion Labs Labs: Laboratory Tests Test 03/08/20 15:48 03/09/20 04:10 Urine Collection Type Unknown Urine Color Yellow Urine Clarity Clear Urine pH 6.0 (<5.0-8.0) Urine Specific [place] 1.015 (1.000-1.030) Urine Protein Negative mg/dL (NEG-TRACE) Urine Glucose (UA) Negative mg/dL (NEG) Urine Ketones (Stick) Negative mg/dL (NEG) Urine Blood Negative (NEG) Urine Nitrite Negative (NEG) Urine Bilirubin Negative (NEG) Urine Urobilinogen Dipstick 0.2 mg/dL (0.2 mg/dL) Urine Leukocyte Esterase Negative (NEG) Urine RBC 6-10 /HPF (0-2) Urine WBC 1-4 /HPF (0-4) Urine Squamous Epithelial Cells Many /LPF Urine Bacteria Many /HPF (0-FEW) Urine Hyaline Casts Few /HPF Urine Mucus Marked /LPF Urine Random Creatinine 73.4 mg/dL (Not Establ.) Sodium Level 143 mmol/L (136-145) Potassium Level 3.9 mmol/L (3.5-5.1) Chloride Level 106 mmol/L (98-107) Carbon Dioxide Level 32 mmol/L (21-32) Anion Gap 5 (6-14) Blood Urea Nitrogen 9 mg/dL (7-20) Creatinine 0.7 mg/dL (0.6-1.0) Estimated GFR (Cockcroft-Gault) 108.1 Glucose Level 91 mg/dL (70-99) Calcium Level 8.5 mg/dL (8.5-10.1) Assessment and Plan Assessmemt and Plan Chest pain discharge home Comment Review of Relevant I have reviewed the following items viviana (where applicable) has been applied. Medications: Current Medications Medications (Trade) Dose Ordered Sig/Ry Route PRN Reason Start Time Stop Time Status Last Admin Dose Admin Acetaminophen (Tylenol) 650 mg PRN Q6HRS PRN PO PAIN 03/08/20 18:30 03/09/20 08:17 Acetaminophen/ Hydrocodone Bitart (Lortab 5/325) 1 tab PRN Q4HRS PRN PO PAIN 03/09/20 09:45 03/09/20 09:40 YESSY GALINDO III DO March 09, 2020 11:25
[2020-03-09 11:30] VITALS: BP 146/83
--- NOTE | 2020-03-09 11:33 | DS ---
DATE OF DISCHARGE: ADMISSION DIAGNOSIS: Chest pain. DISCHARGE DIAGNOSES: Atypical chest pain, hypertension, asthma, gastroesophageal reflux disease, cholecystectomy, hernia repair, hysterectomy. CONSULTS: Cardiology. PROCEDURES: None. HOSPITAL COURSE: The patient is a pleasant middle-aged female who presented with chest pain. She was admitted. We did serial enzymes, serial EKGs with cardiac monitoring and consulted Cardiology. I discussed the case with Dr. Orona this morning, he is okay with the patient going home. He is going to arrange an outpatient stress test. DISPOSITION: Home. ACTIVITY: As tolerated. DIET: Low sodium. MEDICATIONS: Please see the MRAD. TOTAL TIME: 32 minutes. YESSY GALINDO DO DR: NICK/blanca JOB#: [id number] / [id number]
[2020-03-09] MEDS ORDERED: HYDR-2761 PO (11:39)
--- NOTE | 2020-03-09 12:18 | PDOC ---
PROGRESS NOTES Subjective Subjective Patient seen and examined Objective Objective Vital Signs Date Time Temp Pulse Resp B/P (MAP) Pulse Ox O2 Delivery O2 Flow Rate FiO2 03/09/20 10:40 18 Room Air 03/09/20 08:17 76 117/70 03/09/20 07:30 98.1 94 98.1 Intake and Output 03/09/20 07:00 Intake Total 2260 ml Balance 2260 ml Intake Oral 2260 ml # Voids 5 Physical Exam Abdomen: Normal bowel sounds Heart: Regular rate General: No acute distress Lungs: Clear to auscultation Assessment Assessment 1. Chest pain. Pain resolved. Troponins have been normal. EKG reportedly shows no acute ischemic changes. Pain has resolved. Patient may be discharged from a cardiac viewpoint. We will arrange outpatient stress testing. 2. Hypertension. Reasonable control. Continue present medications. 3. Asthma. No wheezing on examination. Patient overall is feeling well. Comment Review of Relevant I have reviewed the following items viviana (where applicable) has been applied. Labs Laboratory Tests Test 03/08/20 00:32 03/08/20 06:45 03/08/20 09:45 03/08/20 15:48 White Blood Count 12.1 x10^3/uL (4.0-11.0) Red Blood Count 4.48 x10^6/uL (3.50-5.40) Hemoglobin 12.3 g/dL (12.0-15.5) Hematocrit 37.9 % (36.0-47.0) Mean Corpuscular Volume 85 fL (79-100) Mean Corpuscular Hemoglobin 28 pg (25-35) Mean Corpuscular Hemoglobin Concent 33 g/dL (31-37) Red Cell Distribution Width 15.6 % (11.5-14.5) Platelet Count 234 x10^3/uL (140-400) Neutrophils (%) (Auto) 64 % (31-73) Lymphocytes (%) (Auto) 27 % (24-48) Monocytes (%) (Auto) 7 % (0-9) Eosinophils (%) (Auto) 1 % (0-3) Basophils (%) (Auto) 1 % (0-3) Neutrophils # (Auto) 7.7 x10^3/uL (1.8-7.7) Lymphocytes # (Auto) 3.3 x10^3/uL (1.0-4.8) Monocytes # (Auto) 0.9 x10^3/uL (0.0-1.1) Eosinophils # (Auto) 0.1 x10^3/uL (0.0-0.7) Basophils # (Auto) 0.1 x10^3/uL (0.0-0.2) Sodium Level 143 mmol/L (136-145) Potassium Level 2.8 mmol/L (3.5-5.1) Chloride Level 105 mmol/L (98-107) Carbon Dioxide Level 29 mmol/L (21-32) Anion Gap 9 (6-14) Blood Urea Nitrogen 11 mg/dL (7-20) Creatinine 0.9 mg/dL (0.6-1.0) Estimated GFR (Cockcroft-Gault) 80.9 BUN/Creatinine Ratio 12 (6-20) Glucose Level 100 mg/dL (70-99) Calcium Level 9.6 mg/dL (8.5-10.1) Magnesium Level 1.8 mg/dL (1.8-2.4) Total Bilirubin 0.3 mg/dL (0.2-1.0) Aspartate Amino Transf (AST/SGOT) 16 U/L (15-37) Alanine Aminotransferase (ALT/SGPT) 15 U/L (14-59) Alkaline Phosphatase 73 U/L (46-116) Troponin I Quantitative < 0.017 ng/mL (0.000-0.055) < 0.017 ng/mL (0.000-0.055) < 0.017 ng/mL (0.000-0.055) OT-Hpf-U-Type Natriuretic Peptide 16 pg/mL (0-124) Total Protein 7.4 g/dL (6.4-8.2) Albumin 3.8 g/dL (3.4-5.0) Albumin/Globulin Ratio 1.1 (1.0-1.7) Lipase 90 U/L (73-393) Triglycerides Level 42 mg/dL (0-150) Cholesterol Level 129 mg/dL (0-200) LDL Cholesterol, Calculated 80 mg/dL (0-100) VLDL Cholesterol, Calculated 8 mg/dL (0-40) Non-HDL Cholesterol Calculated 88 mg/dL (0-129) HDL Cholesterol 41 mg/dL (40-60) Cholesterol/HDL Ratio 3.1 Thyroid Stimulating Hormone (TSH) 1.406 uIU/mL (0.358-3.74) Urine Collection Type Unknown Urine Color Yellow Urine Clarity Clear Urine pH 6.0 (<5.0-8.0) Urine Specific [place] 1.015 (1.000-1.030) Urine Protein Negative mg/dL (NEG-TRACE) Urine Glucose (UA) Negative mg/dL (NEG) Urine Ketones (Stick) Negative mg/dL (NEG) Urine Blood Negative (NEG) Urine Nitrite Negative (NEG) Urine Bilirubin Negative (NEG) Urine Urobilinogen Dipstick 0.2 mg/dL (0.2 mg/dL) Urine Leukocyte Esterase Negative (NEG) Urine RBC 6-10 /HPF (0-2) Urine WBC 1-4 /HPF (0-4) Urine Squamous Epithelial Cells Many /LPF Urine Bacteria Many /HPF (0-FEW) Urine Hyaline Casts Few /HPF Urine Mucus Marked /LPF Urine Random Creatinine 73.4 mg/dL (Not Establ.) Test 03/09/20 04:10 Sodium Level 143 mmol/L (136-145) Potassium Level 3.9 mmol/L (3.5-5.1) Chloride Level 106 mmol/L (98-107) Carbon Dioxide Level 32 mmol/L (21-32) Anion Gap 5 (6-14) Blood Urea Nitrogen 9 mg/dL (7-20) Creatinine 0.7 mg/dL (0.6-1.0) Estimated GFR (Cockcroft-Gault) 108.1 Glucose Level 91 mg/dL (70-99) Calcium Level 8.5 mg/dL (8.5-10.1) Laboratory Tests Test 03/08/20 15:48 03/09/20 04:10 Urine Collection Type Unknown Urine Color Yellow Urine Clarity Clear Urine pH 6.0 (<5.0-8.0) Urine Specific [place] 1.015 (1.000-1.030) Urine Protein Negative mg/dL (NEG-TRACE) Urine Glucose (UA) Negative mg/dL (NEG) Urine Ketones (Stick) Negative mg/dL (NEG) Urine Blood Negative (NEG) Urine Nitrite Negative (NEG) Urine Bilirubin Negative (NEG) Urine Urobilinogen Dipstick 0.2 mg/dL (0.2 mg/dL) Urine Leukocyte Esterase Negative (NEG) Urine RBC 6-10 /HPF (0-2) Urine WBC 1-4 /HPF (0-4) Urine Squamous Epithelial Cells Many /LPF Urine Bacteria Many /HPF (0-FEW) Urine Hyaline Casts Few /HPF Urine Mucus Marked /LPF Urine Random Creatinine 73.4 mg/dL (Not Establ.) Sodium Level 143 mmol/L (136-145) Potassium Level 3.9 mmol/L (3.5-5.1) Chloride Level 106 mmol/L (98-107) Carbon Dioxide Level 32 mmol/L (21-32) Anion Gap 5 (6-14) Blood Urea Nitrogen 9 mg/dL (7-20) Creatinine 0.7 mg/dL (0.6-1.0) Estimated GFR (Cockcroft-Gault) 108.1 Glucose Level 91 mg/dL (70-99) Calcium Level 8.5 mg/dL (8.5-10.1) Medications Current Medications Aspirin (Aspirin Chewable) 324 mg 1X ONCE PO Last administered on 03/08/20at 00:31; Start 03/08/20 at 00:30; Stop 03/08/20 at 00:31; Status DC Nitroglycerin (Nitrostat) 0.4 mg PRN Q5MIN PRN SL CP RATING > 1/10 Last administered on 03/08/20at 01:17; Start 03/08/20 at 00:15; Stop 03/08/20 at 10:03; Status DC Sodium Chloride 1,000 ml @ 1,000 mls/hr Q1H IV Last administered on 03/08/20at 01:20; Start 03/08/20 at 00:30; Stop 03/08/20 at 01:29; Status DC Potassium Chloride (Klor-Con) 40 meq 1X ONCE PO Last administered on 03/08/20at 02:01; Start 03/08/20 at 02:30; Stop 03/08/20 at 02:31; Status DC Morphine Sulfate (Morphine Sulfate) 4 mg 1X ONCE IV Last administered on 03/08/20at 02:02; Start 03/08/20 at 02:30; Stop 03/08/20 at 02:31; Status DC Ondansetron HCl (Zofran) 4 mg 1X ONCE IVP Last administered on 03/08/20at 02:51; Start 03/08/20 at 03:00; Stop 03/08/20 at 03:01; Status DC Ondansetron HCl (Zofran) 4 mg PRN Q8HRS PRN IV NAUSEA/VOMITING 1ST CHOICE Last administered on 03/08/20at 19:56; Start 03/08/20 at 03:30; Stop 03/09/20 at 03:29; Status DC Morphine Sulfate (Morphine Sulfate) 4 mg PRN Q2HR PRN IV SEVERE PAIN 7-10 Last administered on 03/08/20at 19:54; Start 03/08/20 at 03:30; Stop 03/09/20 at 03:29; Status DC Magnesium Sulfate 50 ml @ 25 mls/hr 1X ONCE IV Last administered on 03/08/20at 10:23; Start 03/08/20 at 10:00; Stop 03/08/20 at 11:59; Status DC Potassium Chloride (Klor-Con) 40 meq 1X ONCE PO Last administered on 03/08/20at 10:24; Start 03/08/20 at 09:45; Stop 03/08/20 at 09:46; Status DC Citalopram Hydrobromide (CeleXA) 40 mg DAILY PO Last administered on 03/08/20at 10:25; Start 03/08/20 at 10:00; Stop 03/08/20 at 19:49; Status DC Lisinopril (Prinivil) 20 mg DAILY PO Last administered on 03/09/20at 08:17; Start 03/08/20 at 10:00 Hydrochlorothiazide (Microzide) 12.5 mg DAILY PO Last administered on 03/09/20at 08:17; Start 03/08/20 at 10:00 Nitroglycerin (Nitrostat) 0.4 mg PRN Q5MIN PRN SL CHEST PAIN; Start 03/08/20 at 10:15 Amlodipine Besylate (Norvasc) 2.5 mg DAILY PO Last administered on 03/09/20at 08:17; Start 03/08/20 at 10:30 Multi-Ingredient Mouthwash/Gargle (Gi Cocktail) 20 ml 1X ONCE PO Last administered on 03/08/20at 10:23; Start 03/08/20 at 10:15; Stop 03/08/20 at 10:16; Status DC Acetaminophen (Tylenol) 650 mg PRN Q6HRS PRN PO PAIN Last administered on 03/09/20at 08:17; Start 03/08/20 at 18:30 Citalopram Hydrobromide (CeleXA) 40 mg QHS PO ; Start 03/08/20 at 21:00 Acetaminophen/ Hydrocodone Bitart (Lortab 5/325) 1 tab PRN Q4HRS PRN PO PAIN Last administered on 03/09/20at 09:40; Start 03/09/20 at 09:45 Ondansetron HCl (Zofran) 4 mg PRN Q6HRS PRN IVP NAUSEA/VOMITING; Start 03/09/20 at 09:45 Active Scripts Active Reported Hydrocodone-Apap 5-325 (Hydrocodone Bit/Acetaminophen) 1 Tab Tablet 1 Tab PO PRN Q6HRS PRN Vyvanse (Lisdexamfetamine Dimesylate) 50 Mg Capsule 1 Cap PO DAILY MDD 1 Capsule(s) 5 Days Escitalopram Oxalate 20 Mg Tablet 30 Mg PO DAILY Lisinopril-Hctz 20-12.5 Mg Tab (Lisinopril/Hydrochlorothiazide) 1 Each Tablet 1 Tab PO DAILY Vitals/I & O Vital Sign - Last 24 Hours 03/08/20 03/08/20 03/08/20 03/08/20 15:30 19:35 19:45 19:54 Temp 98.1 98.2 98.1 98.2 Pulse 97 85 Resp 16 20 20 B/P (MAP) 116/77 (90) 127/67 (87) Pulse Ox 95 O2 Delivery Room Air Room Air Room Air 03/08/20 03/08/20 03/09/20 03/09/20 20:24 22:54 03:45 07:30 Temp 97.9 98.1 98.1 97.9 98.1 98.1 Pulse 101 82 76 Resp 20 20 20 16 B/P (MAP) 158/83 (108) 139/77 (97) 117/70 (86) Pulse Ox 93 94 94 O2 Delivery Room Air Room Air Room Air Room Air 03/09/20 03/09/20 03/09/20 03/09/20 08:00 08:17 08:17 09:40 Pulse 76 76 Resp 18 B/P (MAP) 117/70 117/70 O2 Delivery Room Air Room Air 03/09/20 10:40 Resp 18 O2 Delivery Room Air Intake and Output 03/08/20 03/08/20 03/09/20 15:00 23:00 07:00 Intake Total 360 ml 1400 ml 500 ml Balance 360 ml 1400 ml 500 ml ADRY HERNANDEZ MD March 09, 2020 12:18
--- NOTE | 2020-03-09 16:40 | NUR ---
Discharge Note: NGOC CARDOZO Discharge instructions and discharge home medications reviewed with Patient and a copy given. All questions have been answered and understanding verbalized. All belongings taken with patient upon discharge. The following instructions and handouts were given: chest pain Discontinued lines and drains: Peripheral IV intact. Patient discharged to Home or Self Care with Self via Ambulated
== END 2020-03-09 16:39 | disposition home or self-care (01) | DRG 313 ==
LOC: ER 00:01 → 2 NORTH 04:01
PROVIDERS: ADMIT Internal Medicine; ATTEND Internal Medicine
DX: R07.89 Other chest pain (principal); Z68.41 Body mass index [BMI] 40.0-44.9, adult; F41.9 Anxiety disorder, unspecified; J45.909 Unspecified asthma, uncomplicated; I10 Essential (primary) hypertension; K21.9 Gastro-esophageal reflux disease without esophagitis; E66.9 Obesity, unspecified; Z85.41 Personal history of malignant neoplasm of cervix uteri; Z90.710 Acquired absence of both cervix and uterus; Z90.49 Acquired absence of other specified parts of digestive tract; Z82.49 Family history of ischemic heart disease and other diseases of the circulatory system; Z88.8 Allergy status to other drugs, medicaments and biological substances
CPT/HCPCS: 36415; 71045; 80048; 80053; 80061; 81001; 82570; 83690; 83735; 83880; 84443; 84484; 85025; 87086; 93005; 96361; 96374; 96375; 99285; J2270; J2405; J3475; J7030; G0378

== ENCOUNTER 2021-04-12 12:38 | Emergency (ER) | payer BC ==
[~2021-04-12] VITALS: Ht 154.9 cm; Wt 104.0 kg
[~2021-04-12 12:38] MED LIST changes: +ESCITALOPRAM OX20 MG PO; +HYDR-2761 PO; +LISD50CA3 PO; +LISI1TAB37 PO
[2021-04-12 14:29] LABS: BASO # 0.1 x10^3/uL (0.0-0.2); BASO % 1 % (0-3); EOS # 0.2 x10^3/uL (0.0-0.7); EOS % 2 % (0-3); HEMATOCRIT 36.1 % (36.0-47.0); HEMOGLOBIN 12.1 g/dL (12.0-15.5); LYMPH # 2.4 x10^3/uL (1.0-4.8); LYMPH % 29 % (24-48); MEAN CORPUSCULAR HEMOGLOBIN 28 pg (25-35); MEAN CORPUSCULAR HGB CONC 34 g/dL (31-37); MEAN CORPUSCULAR VOLUME 85 fL (79-100); MONO # 0.6 x10^3/uL (0.0-1.1); MONO % 7 % (0-9); NEUT % 61 % (31-73); PLATELET COUNT 246 x10^3/uL (140-400); RED BLOOD COUNT 4.27 x10^6/uL (3.50-5.40); RED CELL DISTRIBUTION WIDTH 15.6 % (11.5-14.5); WHITE BLOOD COUNT 8.2 x10^3/uL (4.0-11.0)
--- NOTE | 2021-04-12 14:48 | RAD ---
EXAM: Chest, single view. HISTORY: Chest pain. COMPARISON: 03/08/2020. FINDINGS: A frontal view of the chest is obtained. There is no infiltrate, pleural effusion or pneumo thorax. There are calcified granulomas. There is a stable cardiac silhouette. IMPRESSION: No acute pulmonary finding. Electronically signed by: Jennifer Haines MD (04/12/2021 2:46 PM) [id number]
[2021-04-12 14:51] LABS: CALCIUM 9.1 mg/dL (8.5-10.1); CREATININE 0.6 mg/dL (0.6-1.0); GFR 128.6; POTASSIUM 3.5 mmol/L (3.5-5.1)
--- NOTE | 2021-04-12 14:54 | RAD ---
EXAM: CT HEAD WITHOUT CONTRAST. HISTORY: Headache. TECHNIQUE: Computed tomography of the head was performed without intravenous contrast. One or more of the following individualized dose reduction techniques were utilized for this examination: 1. Automated exposure control. 2. Adjustment of the mA and/or kV according to patient size. 3. Use of iterative reconstruction technique. COMPARISON: None. FINDINGS: There is no intracranial hemorrhage. Duncan-white differentiation is preserved. The ventricle s are normal in size and position. The visualized paranasal sinuses appear clear. The orbits are unremarkable. The temporal bones are un remarkable. The calvarium reveals no suspicious lesions. IMPRESSION: 1. No acute intracranial findings. Electronically signed by: Hiren Minor MD (04/12/2021 2:51 PM) [id number]
[2021-04-12 14:57] LABS: ALBUMIN 3.8 g/dL (3.4-5.0); ALBUMIN/GLOBULIN RATIO 1.1 (1.0-1.7); MAGNESIUM 2.4 mg/dL (1.8-2.4); TOTAL BILIRUBIN 0.2 mg/dL (0.2-1.0); TOTAL PROTEIN 7.4 g/dL (6.4-8.2)
--- NOTE | 2021-04-12 15:23 | EKG ---
[facility] [address] [place] [address] Test Date: 2021-04-12 Test Time: 14:24:29 Pat Name: NGOC CARDOZODepartment: Room: Gender: F [employer] Counter: : [id number] Requested By: ARNOLD WILDER Order Number: [id number] Reading MD: Measurements Intervals Keeler Rate: 71 P: 41 TX: 144 QRS: -10 QRSD: 76 T: 1 QT: 460 QTc: 500 Interpretive Statements SINUS RHYTHM VENTRICULAR PREMATURE COMPLEX(ES) LEFTWARD AXIS T ABNORMALITY IN ANTEROLATERAL LEADS PROLONGED QT ABNORMAL ECG RI6.02 No previous ECG available for comparison
[2021-04-12] MEDS ORDERED: PROCHLORPERAZINE 10 MG/2 ML VIAL. IV ONE (15:30)
[2021-04-12] MEDS ORDERED: MECLIZINE HCL 12.5 MG TABLET. PO ONE (15:30)
[2021-04-12] MEDS ORDERED: methylPREDNISolone SOD SUCC PF 125 MG/2 ML VIAL. IV ONE (15:30)
[2021-04-12] MEDS ORDERED: IV NORMAL SALINE 1000ML BAG 1,000 ML IV ONE (15:30)
[2021-04-12] MEDS ORDERED: diphenhydrAMINE 50 MG/ML VIAL IVP ONE (15:30)
[2021-04-12 16:01] LABS: BILIRUBIN,URINE NEGATIVE (NEG); COLOR,URINE YELLOW; NITRITE,URINE NEGATIVE (NEG); PH,URINE 6.5 (<5.0-8.0); PROTEIN,URINE NEGATIVE (NEG-TRACE); UROBILINOGEN,URINE 0.2 mg/dL (0.2 mg/dL)
[2021-04-12 16:13] LABS: BACTERIA,URINE FEW /HPF (0-FEW); CLARITY,URINE HAZY; WBC,URINE OCC /HPF (0-4)
[2021-04-12 16:17] VITALS: BP 139/79
--- NOTE | 2021-04-12 16:18 | ED.ADGEN ---
Past Medical History Past Medical History: Anxiety, Asthma, Cancer, Hypertension Additional Past Medical Histor: Cervical Ca,NEUROPATHY Past Surgical History: Cholecystectomy, Hysterectomy Additional Past Surgical Histo: Hernia, Esophagus Repair Smoking Status: Never Smoker Alcohol Use: Rarely Drug Use: None General Adult EDM: Chief Complaint: MULTIPLE COMPLAINTS HPI: HPI: Patient is a 50 year old AA female who presents emergency department with com plaints of a posterior headache for the last 3 weeks. She states that it is a constant pounding sensation in the back of her head. She denies any vision changes, photosensitivity, fever, cough, chest pain, palpitations, rash, sore throat, ear pain, nasal congestion. Patient denies any loss of taste/smell. She states that when she changes position she becomes lightheaded and feels like she cannot breathe. Patient states erythema starts to spin when she changes positions. She denies any recent head injury. She denies any recent nausea, vomiting, diarrhea, abdominal pain, dysuria, hematuria, or increased urinary frequency. Patient complains of pressure behind both of her eyes. She curr ently rates her headache a 8 out of 10 on the pain scale, she reports her pain is worse with movement and activity, she denies any alleviating factors. Review of Systems: Review of Systems: Complete ROS is negative unless otherwise noted in HPI. Current Medications: Current Medications Medications (Trade) Dose Ordered Sig/Ry Start Time Stop Time Status Last Admin Dose Admin Diphenhydramine HCl (Benadryl) 25 mg 1X ONCE 04/12/21 15:30 04/12/21 15:31 DC 04/12/21 15:51 25 MG Meclizine HCl (Antivert) 25 mg 1X ONCE 04/12/21 15:30 04/12/21 15:31 DC 04/12/21 15:52 25 MG Methylprednisolone Sodium Succinate (SOLU-Medrol 125MG VIAL) 125 mg 1X ONCE 04/12/21 15:30 04/12/21 15:31 DC 04/12/21 15:51 125 MG Prochlorperazine Edisylate (Compazine) 10 mg 1X ONCE 04/12/21 15:30 04/12/21 15:31 DC 04/12/21 15:52 10 MG Sodium Chloride 1,000 ml @ 1,000 mls/hr 1X ONCE 04/12/21 15:30 04/12/21 16:29 DC 04/12/21 15:50 1,000 MLS/HR Allergies: Allergies: Allergies Coded Allergies Type Severity Reaction Last Updated Verified metronidazole Allergy Intermediate rash 10/30/18 Yes Physical Exam: PE: See Above Constitutional: Well developed, well nourished, no acute distress, non-toxic appearance. [] HENT: Normocephalic, atraumatic, bilateral external ears normal, nose normal. [] Eyes: PERRLA, EOMI, conjunctiva normal, no discharge, few beats of horizontal nystagmus with rightward gaze, [] Neck: Normal range of motion, supple, nontender, no stridor. [] Cardiovascular:Heart rate regular rhythm Lungs & Thorax: Respirations even and unlabored, no retractions, no respiratory distress Abdomen: soft, no tenderness Skin: Warm, dry, no erythema, no rash. [] Extremities: No cyanosis, ROM intact, no edema. [] Neurologic: Alert and oriented X 3, normal motor, normal sensory, no focal deficits noted. [] Psychologic: Affect normal, judgement normal, mood normal. [] Current Patient Data: Labs: Laboratory Tests Test 04/12/21 14:15 04/12/21 14:56 White Blood Count 8.2 x10^3/uL (4.0-11.0) Red Blood Count 4.27 x10^6/uL (3.50-5.40) Hemoglobin 12.1 g/dL (12.0-15.5) Hematocrit 36.1 % (36.0-47.0) Mean Corpuscular Volume 85 fL (79-100) Mean Corpuscular Hemoglobin 28 pg (25-35) Mean Corpuscular Hemoglobin Concent 34 g/dL (31-37) Red Cell Distribution Width 15.6 % (11.5-14.5) H Platelet Count 246 x10^3/uL (140-400) Neutrophils (%) (Auto) 61 % (31-73) Lymphocytes (%) (Auto) 29 % (24-48) Monocytes (%) (Auto) 7 % (0-9) Eosinophils (%) (Auto) 2 % (0-3) Basophils (%) (Auto) 1 % (0-3) Neutrophils # (Auto) 5.0 x10^3/uL (1.8-7.7) Lymphocytes # (Auto) 2.4 x10^3/uL (1.0-4.8) Monocytes # (Auto) 0.6 x10^3/uL (0.0-1.1) Eosinophils # (Auto) 0.2 x10^3/uL (0.0-0.7) Basophils # (Auto) 0.1 x10^3/uL (0.0-0.2) Sodium Level 144 mmol/L (136-145) Potassium Level 3.5 mmol/L (3.5-5.1) Chloride Level 106 mmol/L (98-107) Carbon Dioxide Level 31 mmol/L (21-32) Anion Gap 7 (6-14) Blood Urea Nitrogen 8 mg/dL (7-20) Creatinine 0.6 mg/dL (0.6-1.0) Estimated GFR (Cockcroft-Gault) 128.6 BUN/Creatinine Ratio 13 (6-20) Glucose Level 113 mg/dL (70-99) H Calcium Level 9.1 mg/dL (8.5-10.1) Magnesium Level 2.4 mg/dL (1.8-2.4) Total Bilirubin 0.2 mg/dL (0.2-1.0) Aspartate Amino Transferase (AST) 18 U/L (15-37) Alanine Aminotransferase (ALT) 19 U/L (14-59) Alkaline Phosphatase 98 U/L (46-116) Creatine Kinase 208 U/L (26-192) H Creatine Kinase MB (Mass) 1.4 ng/mL (0.0-3.6) Creatine Kinase MB Relative Index 0.7 % (0-4) Troponin I Quantitative < 0.017 ng/mL (0.000-0.055) Total Protein 7.4 g/dL (6.4-8.2) Albumin 3.8 g/dL (3.4-5.0) Albumin/Globulin Ratio 1.1 (1.0-1.7) Lipase 88 U/L (73-393) Urine Collection Type Void Urine Color Yellow Urine Clarity Hazy Urine pH 6.5 (<5.0-8.0) Urine Specific [place] 1.020 (1.000-1.030) Urine Protein Negative mg/dL (NEG-TRACE) Urine Glucose (UA) Negative mg/dL (NEG) Urine Ketones (Stick) Negative mg/dL (NEG) Urine Blood Small (NEG) Urine Nitrite Negative (NEG) Urine Bilirubin Negative (NEG) Urine Urobilinogen Dipstick 0.2 mg/dL (0.2 mg/dL) Urine Leukocyte Esterase Negative (NEG) Urine RBC 6-10 /HPF (0-2) Urine WBC Occ /HPF (0-4) Urine Squamous Epithelial Cells Mod /LPF Urine Bacteria Few /HPF (0-FEW) Urine Mucus Mod /LPF Laboratory Tests 04/12/21 14:15 Laboratory Tests 04/12/21 14:15 Vital Signs: Vital Signs Date Time Temp Pulse Resp B/P (MAP) Pulse Ox O2 Delivery O2 Flow Rate FiO2 04/12/21 16:17 67 139/79 (99) 94 Room Air 04/12/21 13:52 98.1 18 98.1 EKG: EK-sinus rhythm with PVCs and leftward axis, rate 71, no STEMI, read by Dr. Cherry [] Heart Score: C/O Chest Pain: No Radiology/Procedures: Radiology/Procedures: PROCEDURE: CT HEAD WO CONTRAST EXAM: CT HEAD WITHOUT CONTRAST. HISTORY: Headache. TECHNIQUE: Computed tomography of the head was performed without intravenous contrast. One or more of the following individualized dose reduction techniques were utilized for this examination: 1. Automated exposure control. 2. Adjustment of the mA and/or kV according to patient size. 3. Use of iterative reconstruction technique. COMPARISON: None. FINDINGS: There is no intracranial hemorrhage. Duncan-white differentiation is preserved. The ventricles are normal in size and position. The visualized paranasal sinuses appear clear. The orbits are unremarkable. The temporal bones are unremarkable. The calvarium reveals no suspicious lesions. IMPRESSION: 1. No acute intracranial findings. Electronically signed by: Hiren Minor MD (04/12/2021 2:51 PM) [id number] PROCEDURE: CHEST AP ONLY EXAM: Chest, single view. HISTORY: Chest pain. COMPARISON: 03/08/2020. FINDINGS: A frontal view of the chest is obtained. There is no infiltrate, pleural effusion or pneumothorax. There are calcified granulomas. There is a stable cardiac silhouette. IMPRESSION: No acute pulmonary finding. [] Course & Med Decision Making: Course & Med Decision Making Pertinent Labs and Imaging studies reviewed. (See chart for details) 50-year-old female presents emergency department multiple complaints. CT of the patient's head was negative for any acute findings. Patient was given a liter normal saline, 10 mg of Compazine IV, 25 mg of Benadryl IV, 125 mg of Solu-Medrol IV and 25 mg of meclizine. She reported relief of her headache after these medications. Patient also denied dizziness. Prescription written for meclizine to take as needed for dizziness. Patient encouraged to go home and rest in a cool dark room, avoid screen exposure follow-up with her primary care doctor and ENT for further patient. Return to the ER symptoms worsen or fever develop. Patient verbalized an understanding of home care, medications, follow-up, and return to ED instructions and was in agreement with the plan of care. [] Dragon Disclaimer: Dragon Disclaimer: This electronic medical record was generated, in whole or in part, using a voice recognition dictation system. Departure Departure Impression: Primary Impression: Head ache Additional Impression: BPPV (benign paroxysmal positional vertigo) Disposition: HOME / SELF CARE / HOMELESS Condition: STABLE Referrals: JNONIE THACKER (PCP) Patient Instructions: Benign Positional Vertigo, General Headache Without Cause Additional Instructions: Fill the prescription and take it as directed. Go home and rest in a cool, dark, quiet room. Limit screen exposure. Change positions slowly in stages, for instance go from lying to sitting wait a while and then stand. Follow-up with your primary care doctor in the next 1 to 2 days, also recommend follow-up with ENT provider Dr. Reich's information patient. Return to the ER if sym ptoms worsen or fever develops. Scripts Meclizine Hcl (MECLIZINE HCL) 25 Mg Tablet 1 TAB PO PRN TID PRN for DIZZINESS for 10 Days, #30 TAB 0 Refills Prov: ARNOLD WILDER [employer] 04/12/21 Problem Qualifiers ARNOLD WILDER [employer] Apr 12, 2021 16:17
[2021-04-12] MEDS ORDERED: MECL-75 PO (16:42)
== END 2021-04-12 17:02 | disposition home or self-care (01) ==
LOC: ER 12:38
DX: H81.10 Benign paroxysmal vertigo, unspecified ear (principal); R51.9 Headache, unspecified; F41.9 Anxiety disorder, unspecified; J45.909 Unspecified asthma, uncomplicated; I10 Essential (primary) hypertension; Z90.89 Acquired absence of other organs; Z90.710 Acquired absence of both cervix and uterus; Z88.8 Allergy status to other drugs, medicaments and biological substances
CPT/HCPCS: 36415; 70450; 71045; 80053; 81001; 82553; 83690; 83735; 84484; 85025; 93005; 96361; 96374; 96375; 99285; J0780; J1200; J2930; J7030; J8597

== ENCOUNTER 2021-05-26 12:15 | Emergency (ER) | payer BC ==
[~2021-05-26] VITALS: Ht 154.9 cm; Wt 107.5 kg
[~2021-05-26 12:15] MED LIST changes: +MECL-75 PO
[2021-05-26 13:35] VITALS: BP 145/104
[2021-05-26 14:09] LABS: BILIRUBIN,URINE NEGATIVE (NEG); CLARITY,URINE CLEAR; COLOR,URINE YELLOW; NITRITE,URINE NEGATIVE (NEG); PH,URINE 7.5 (<5.0-8.0); PROTEIN,URINE NEGATIVE (NEG-TRACE); UROBILINOGEN,URINE 0.2 mg/dL (0.2 mg/dL)
[2021-05-26 14:14] LABS: BACTERIA,URINE MANY /HPF (0-FEW)
[2021-05-26 14:15] LABS: WBC,URINE 20-40 /HPF (0-4)
[2021-05-26] MEDS ORDERED: ONDANSETRON ODT 4 MG TAB.RAPDIS. PO ONE (14:15)
[2021-05-26] MEDS ORDERED: HYDROcodone/APAP 5/325MG 1 TAB TABLET PO ONE (14:15)
--- NOTE | 2021-05-26 14:30 | RAD ---
Exam Date: 05/26/2021 2:[address] ABDOMEN+PELVIS WO Indication: Reason: flank pain lower abd pain urinary frequincy/burning / Spl. Instructions: / Hist ory: . TECHNIQUE: CT examination of the abdomen and pelvis was performed without oral or intravenous contra st. One or more of the following dose reduction techniques were utilized: *Automated exposure control (AEC) *Adjustment of mA and/or kV according to patient size *Use of iterative reconstruction technique *CT scan done according to ALARA, or ALARA/IMAGE GENTLY FINDINGS: The visualized lung bases are clear. Status post cholecystectomy. Calcified granulomas are seen in the liver. The liver, spleen, pancreas, and adrenal glands are otherwise normal. The kidneys are normal bilaterally. No hydronephrosis or hydroureter is seen. No urinary tract calc kevin are seen. Urinary bladder is normal in appearance. There is no bowel obstruction or inflammation. The appendix is normal. No significant atherosclerotic calcifications are seen. No lymphadenopathy or ascites is seen. Degenerative changes are seen in the spine. IMPRESSION: Normal appearance of the kidneys and bladder. No hydronephrosis or hydroureter. No urinary tract ca lculi. No acute intra-abdominal pathology. Normal appendix. Electronically signed by: Jason Flores MD (05/26/2021 2:28 PM) [id number]
[2021-05-26] MEDS ORDERED: LIDOCAINE 1% PF 2 ML VIAL. INJ ONE (14:45)
[2021-05-26] MEDS ORDERED: cefTRIAXone IM 1 GM VIAL IM ONE (14:45)
[2021-05-26] MEDS ORDERED: PHEN100T82 PO (14:54)
[2021-05-26] MEDS ORDERED: CEPH500T PO (14:54)
[2021-05-26] MEDS ORDERED: LISI1TAB23 PO (14:54)
--- NOTE | 2021-05-26 14:54 | PHYS DOC ---
Past Medical History Past Medical History: Anxiety, Asthma, Cancer, Hypertension Additional Past Medical Histor: Cervical Ca,NEUROPATHY Past Surgical History: Cholecystectomy, Hysterectomy Additional Past Surgical Histo: Hernia, Esophagus Repair Smoking Status: Never Smoker Alcohol Use: Occasionally Drug Use: None General Adult EDM: Chief Complaint: ABDOMINAL PAIN HPI: HPI: Patient is a 50 year old female with a history of anxiety, hypertension, who presents to the ED today complaining of dysuria, frequency, mild lower cramping intermittent abdominal pain, flank pain bilaterally, symptoms began yesterday. Patient denies any fever. Patient denies any nausea, vomiting, fever. Review of Systems: Review of Systems: Constitutional: Denies fever or chills. [] Eyes: Denies change in visual acuity. [] HENT: Denies nasal congestion or sore throat. [] Respiratory: Denies cough or shortness of breath. [] Cardiovascular: Denies chest pain or edema. [] GI: Reports lower abdominal pain, denies nausea, vomiting, bloody stools or diarrhea. [] : Reports dysuria, frequency, flank pain Musculoskeletal: Denies back pain or joint pain. [] Integument: Denies rash. [] Neurologic: Denies headache, focal weakness or sensory changes. [] Psychiatric: Denies depression or anxiety. [] Heart Score: C/O Chest Pain: N/A Risk Factors: Risk Factors: DM, Current or recent (<one month) smoker, HTN, HLP, family history of CAD, obesity. Risk Scores: Score 0 - 3: 2.5% MACE over next 6 weeks - Discharge Home Score 4 - 6: 20.3% MACE over next 6 weeks - Admit for Clinical Observation Score 7 - 10: 72.7% MACE over next 6 weeks - Early Invasive Strategies Current Medications: Current Medications Medications (Trade) Dose Ordered Sig/Ry Start Time Stop Time Status Last Admin Dose Admin Acetaminophen/ Hydrocodone Bitart (Lortab 5/325) 1 tab 1X ONCE 05/26/21 14:15 05/26/21 14:16 DC 05/26/21 14:17 1 TAB Ceftriaxone Sodium (Rocephin Im) 1 gm 1X ONCE 05/26/21 14:45 05/26/21 14:46 Lidocaine HCl (Xylocaine-Mpf 1% 2ml Vial) 2 ml 1X ONCE 05/26/21 14:45 05/26/21 14:46 Ondansetron HCl (Zofran Odt) 4 mg 1X ONCE 05/26/21 14:15 05/26/21 14:16 DC 05/26/21 14:17 4 MG Allergies: Allergies: Allergies Coded Allergies Type Severity Reaction Last Updated Verified metronidazole Allergy Intermediate rash 10/30/18 Yes Physical Exam: PE: Constitutional: Well developed, well nourished, no acute distress, non-toxic appearance. [] HENT: Normocephalic, atraumatic, bilateral external ears normal, oropharynx m oist, no oral exudates, nose normal. [] Eyes: PERRLA, EOMI, conjunctiva normal, no discharge. [] Neck: Normal range of motion, no tenderness, supple, no stridor. [] Cardiovascular:Heart rate regular rhythm, no murmur [] Lungs & Thorax: Bilateral breath sounds clear to auscultation [] Abdomen: Bowel sounds normal, soft, no tenderness, no masses, no pulsatile masses. [] Skin: Warm, dry, no erythema, no rash. [] Back: No tenderness, no CVA tenderness. [] Extremities: No tenderness, no cyanosis, no clubbing, ROM intact, no edema. [] Neurologic: Alert and oriented X 3, normal motor function, normal sensory function, no focal deficits noted. [] Psychologic: Affect normal, judgement normal, mood normal. [] Current Patient Data: Labs: Laboratory Tests Test 05/26/21 13:40 Urine Collection Type Unknown Urine Color Yellow Urine Clarity Clear Urine pH 7.5 (<5.0-8.0) Urine Specific [place] 1.015 (1.000-1.030) Urine Protein Negative mg/dL (NEG-TRACE) Urine Glucose (UA) Negative mg/dL (NEG) Urine Ketones (Stick) Negative mg/dL (NEG) Urine Blood Moderate (NEG) Urine Nitrite Negative (NEG) Urine Bilirubin Negative (NEG) Urine Urobilinogen Dipstick 0.2 mg/dL (0.2 mg/dL) Urine Leukocyte Esterase Moderate (NEG) Urine RBC 1-2 /HPF (0-2) Urine WBC 20-40 /HPF (0-4) Urine Squamous Epithelial Cells Mod /LPF Urine Bacteria Many /HPF (0-FEW) Urine Mucus Mod /LPF Vital Signs: Vital Signs Date Time Temp Pulse Resp B/P (MAP) Pulse Ox O2 Delivery O2 Flow Rate FiO2 05/26/21 14:17 98 05/26/21 13:35 98.2 81 18 145/104 (99) Room Air 98.2 EKG: EKG: [] Radiology/Procedures: Radiology/Procedures: []PROCEDURE: CT ABDOMEN PELVIS WO CONTRAST Exam Date: 05/26/2021 2:[address] ABDOMEN+PELVIS WO Indication: Reason: flank pain lower abd pain urinary frequincy/burning / Spl. Instructions: / History: . TECHNIQUE: CT examination of the abdomen and pelvis was performed without oral or intravenous contrast. One or more of the following dose reduction techniques were utilized: *Automated exposure control (AEC) *Adjustment of mA and/or kV according to patient size *Use of iterative reconstruction technique *CT scan done according to ALARA, or ALARA/IMAGE GENTLY FINDINGS: The visualized lung bases are clear. Status post cholecystectomy. Calcified granulomas are seen in the liver. The liver, spleen, pancreas, and adrenal glands are otherwise normal. The kidneys are normal bilaterally. No hydronephrosis or hydroureter is seen. No urinary tract calculi are seen. Urinary bladder is normal in appearance. There is no bowel obstruction or inflammation. The appendix is normal. No significant atherosclerotic calcifications are seen. No lymphadenopathy or ascites is seen. Degenerative changes are seen in the spine. IMPRESSION: Normal appearance of the kidneys and bladder. No hydronephrosis or hydroureter. No urinary tract calculi. No acute intra-abdominal pathology. Normal appendix. Electronically signed by: Enedina Flores MD (05/26/2021 2:28 PM) [id number] DICTATED and SIGNED BY: ENEDINA FLORES MD DATE: 05/26/21 [id number] 0 Course & Med Decision Making: Course & Med Decision Making Pertinent Labs and Imaging studies reviewed. (See chart for details) This is a 50-year-old female patient presenting today complaining of abdominal pain, flank pain, urinary frequency and dysuria since yesterday. Negative CT of the abdomen and pelvis. Positive for UTI, given Rocephin IM in the ED and discharged on cephalexin and pyridium. Instructed to push fluids. OTC pain relievers. Patient also requested a refill of lisinopril/HCTZ for her blood pressure. Rx was sent to the pharmacy [facility] Disclaimer: Cesar Disclaimer: This electronic medical record was generated, in whole or in part, using a voice recognition dictation system. Departure Departure Impression: Primary Impression: UTI (urinary tract infection) Qualified Codes: N39.0 - Urinary tract infection, site not specified Additional Impression: Medication refill Referrals: JONNIE THACKER (PCP) follow up with your doctor in one week Patient Instructions: Urinary Tract Infection Additional Instructions: You have urinary tract infection, take the prescribed antibiotics until completed. Follow-up with your primary care doctor in 1 week. Come back to the ED at any point symptoms worsen. You can take [id number] pain relievers as needed Scripts Lisinopril/Hydrochlorothiazide (LISINOPRIL-HCTZ 10-12.5 MG TAB) 1 Each Tablet 1 TAB PO DAILY, #90 TAB 1 Refill Prov: SCHUYLER STAPLETON APRN 05/26/21 Phenazopyridine Hcl (PYRIDIUM) 100 Mg Tablet 1 TAB PO TID for urinary discomfort for 2 Days, #6 TAB 0 Refills Prov: SCHUYLER STAPLETON APRN 05/26/21 Cephalexin (CEPHALEXIN) 500 Mg Tablet 1 TAB PO BID, #14 TAB Prov: SCHUYLER STAPLETON APRN 05/26/21 SCHUYLER STAPLETON APRN May 26, 2021 14:54
== END 2021-05-26 15:15 | disposition home or self-care (01) ==
LOC: ER 12:15
DX: N39.0 Urinary tract infection, site not specified (principal); Z76.0 Encounter for issue of repeat prescription; J45.909 Unspecified asthma, uncomplicated; I10 Essential (primary) hypertension; Z88.3 Allergy status to other anti-infective agents
CPT/HCPCS: 74176; 81001; 87086; 96372; 99284; J0696; J3490